=== PATIENT | male | born 1970 | race Caucasian/White ===

== ENCOUNTER 2018-11-06 12:30 | Emergency (ER) | payer MEDICAID, SELFPAY ==
[2018-11-06 12:30] VITALS: BP 148/91; PULSE 58; RESP 16; TEMP 36.3; O2SAT 99; BMI 25.8
--- NOTE | 2018-11-06 12:55 | ED.VISSUMM ---
- ER Visit Summary Date of Service: 11/06/18 Chief Complaint: Diarrhea History of Present Illness: The patient is a 48 M who presents with diarrhea. This has been going on for about 7 weeks. He has multiple episodes of liquid stool per day. He is worried he might be dehydrated. He noticed a small amount of blood in his diarrhea today. He was on antibiotics around for an upper respiratory infection. He said he already had diarrhea at that time. No pain or other symptoms. No fevers. Physical Examination: Afebrile and vital signs unremarkable. Abdomen soft. Skin appears normal. Test Results: We will check labs, urine, stool testing Emergency Department Course and Treatment: Patient treated with fluids while awaiting results. Hemoglobin 12.8, otherwise labs and urinalysis unremarkable. Patient presents with 7 weeks of diarrhea. He does have findings concerning for C. difficile. We will treat with Flagyl. We will also cover with Cipro. He was referred to primary care for follow-up. Treatment Plan: As above Disposition: Discharge Impression: 1. Diarrheal illness This note was generated with [employer] dictation software. It may contain incorrect words, spelling, and punctuation that were not noted in review of the chart prior to signing ED Disposition - Plan for ED Patient: Chief Complaint: Diarrhea Referrals: Osmel Presley DO [Primary Care Provider] -
[2018-11-06] MEDS: 0.9% Normal Saline 1,000 ML 1000 ML IV (13:42)
[2018-11-06 13:51] LABS: Absolute Lymphocyte Count 2.04 X10^3/ul (0.83-4.51); Basophil# 0.05 X10^3/uL; Basophil% 0.7 % (0-1); Eosinophil# 0.13 X10^3/uL; Eosinophils% 1.9 % (0-5); Hematocrit 39.8 % (40-54); Hemoglobin 12.8 g/dl (13.0-16.5); Lymphocyte # 2.04 X10^3/ul (4.0); Lymphocyte % 30.5 % (19-41); Mean Corp Hgb Conc 32.2 g/gl (32-36); Mean Corpuscular Hgb 29.6 pg (27.0-32.0); Mean Corpuscular Volume 91.9 fL (80-94); Mean Platelet Vol. 10.6 fl (6.2-12.0); Monocyte# 0.42 X10^3/uL; Monocyte% 6.3 % (0-10); Neutrophil # 4.03 X10^3/uL (2.7-7.7); Neutrophil % 60.5 % (47-70); Platelet Count 251 K/mm3 (150-450); RBC Distribution Width CV 13.5 % (11.6-14.6); RBC Distribution Width SD 45.3 fl (35.1-43.9); Red Blood Count 4.33 M/mm3 (4.6-6.2); White Blood Count 6.7 K/mm3 (4.4-11.0)
[2018-11-06 13:54] LABS: POSITIVE COUNT NO; POSITIVE DIFFERENTIAL NO; POSITIVE MORPHOLOGY NO
[2018-11-06 14:01] LABS: ALB/GLOB Ratio 1.2 RATIO (0.9-2.4); AST(SGOT) 15 U/L (15-37); Alanine Aminotransfer ALT/SGPT 22 U/L (16-61); Albumin, Serum 3.8 g/dL (3.2-5.0); Alkaline Phosphatase 66 U/L (45-117); Anion Gap 7 (5-15); BUN 15 mg/dL (7-18); BUN/Creat Ratio 16.5 RATIO (10-20); Calcium,Total 8.7 mg/dL (8.5-10.1); Chloride 109 mmol/L (98-107); Creatinine, Serum 0.91 mg/dL (0.70-1.30); EST Glomerular Filtration Rate 94 mL/min (>60); Est Glom Filt Rate - Afr Amer 113 mL/min (>60); Estimated Creatinine Clearance 97.12 ml/min; Globulin 3.2 g/dL (2.2-4.2); Glucose 89 mg/dL (74-106); Lipase 133 U/L (73-393); Sodium Level 142 mmol/L (136-145)
[2018-11-06 14:14] LABS: Bacteria 0 SEEN /hpf (None Seen); Mucous, Urine 0 SEEN /hpf (<or=2+); Red Blood Cells-Urine 0 SEEN /hpf (0-5); Squamous Epithelial Cells - UA 0 SEEN /hpf (0-5); White Blood Cells 0 SEEN /hpf (0-5)
[2018-11-06 14:19] LABS: Color, Urine Yellow (Yellow); Glucose, Dipstick Normal (Normal); Ketone-Dipstick Negative (Negative); Leukocyte Esterase-Dipstick Negative /ul (Negative); Nitrite-Dipstick Negative (Negative); Occult Blood-Urine Negative /ul (Negative); Protein-Dipstick Negative (Negative); Specific Gravity, Urine 1.015 (1.002-1.030); Urine Bilirubin Dipstick Negative (Negative); Urine Clarity Clear (Clear); Urine Urobilinogen Normal (Normal)
--- NOTE | 2018-11-06 15:07 | ED.DEP ---
ED Disposition - Plan for ED Patient: Chief Complaint: Diarrhea Instructions: ED Diarrhea Bacterial Prescriptions: Metronidazole [Flagyl] 500 mg PO Q8H 10 Days #30 tab Ciprofloxacin [Cipro] 500 mg PO BID 7 Days #14 tab Referrals: Osmel Presley DO [Primary Care Provider] -
[2018-11-06 15:10] VITALS: BP 134/69; PULSE 76; RESP 15; O2SAT 97
--- OUTSIDE RECORDS SUMMARY | 2019-02-10 05:51 | XMS RPT_ITS ---
:1970 Author Organization [facility] Care Team Providers Name Role Phone ANGIE SCHAFER Attending Unavailable SANTO PRESLEY Primary Care Unavailable ANGIE SCHAFER Attending Unavailable SANTO PRESLEY Primary Care Unavailable DR. CASIMIRO DUQUE DO Attending Unavailable SANTO PRESLEY Primary Care Unavailable SANTO PRESLEY Attending Unavailable SANTO PRESLEY Primary Care Unavailable Santo Presley Primary Care Unavailable Phoenix Marshall Attending Unavailable PROBLEMS PROBLEMS DATE TYPE CONDITION / CODE ATTENDING STATUS SOURCE 10/30/2018 Admitting NETO Chaudhary DO, DR. Active [facility] Diagnosis unspecified / CASIMIRO Velasquez R19.7(ICD-10) Repository PROCEDURES PROCEDURES No Procedure Records FoundRESULTS RESULTS Observed: 11/27/2018 Status: F Source: [facility] 9:26 AM [facility] REPOSITORY . MICRO - Microbiology PROCEDURE: Clostridium difficile PCR [^1 *1] SOURCE: Stool BODY SITE: COLLECTED DATE/TIME: 11/27/2018 09:26 EST RECEIVED DATE/TIME: 11/27/2018 15:30 EST START DATE/TIME: 11/27/2018 15:30 EST FREE TEXT SOURCE: FINAL REPORTS Final Report [] Verified Date/Time/Personnel: 11/27/2018 22:31 EST NEGATIVE. No tcdB gene DNA detected. Negative test results may occur from improper collection, handling or storage of specimen, technical error, or number of organisms below the analytical sensitivity of the test. Interpretive Data ^1: Clostridium difficile PCR As with all in vitro diagnostic tests, positive and negative predictive values are highly dependent on prevalence. [employer] C. difficile PCR Assay performance may vary depending on the prevalence and population tested. Performing Locations *1: This test was performed at: [address] Performed By: #### CDP #### [place] [address] Observed: 11/27/2018 Status: F Source: [facility] 9:26 AM [facility] REPOSITORY . MICRO - Microbiology PROCEDURE: Stool Culture [^1 *1] SOURCE: Stool BODY SITE: COLLECTED DATE/TIME: 11/27/2018 09:26 EST RECEIVED DATE/TIME: 11/27/2018 15:30 EST START DATE/TIME: 11/27/2018 15:30 EST FREE TEXT SOURCE: FINAL REPORTS Final Report [] Verified Date/Time/Personnel: 11/30/2018 12:10 EST Normal stool bernardino present. Salmonella: Negative Shigella: Negative Campylobacter: Negative PRELIMINARY REPORTS Preliminary Report [] Verified Date/Time/Personnel: 11/29/2018 12:23 EST Normal stool bernardino present. Negative for stool pathogens at 48 hours. Final report to follow. Interpretive Data ^1: Culture Stool Requests for alternative pathogens including Yersinia, E. coli 0157, C. difficile toxin, Rotavirus, Giardia and parasites require specific requests. Performing Locations *1: This test was performed at: [facility], [address] [place] [address], [address] Performed By: #### STOCK PLAN ADMINISTRATOR, JUSTINA #### [address] [address] Observed: 11/27/2018 Status: F Source: [facility] 9:[facility] AM [facility] REPOSIT[facility] . MICRO - Microbiology PROCEDURE: Shiga Toxins 1 and 2 [^1ACCESSION: [id number] *1] SOURCE: Stool BODY SITE: COLLECTED DATE/TIME: 11/27/2018 09:26 EST RECEIVED DATE/TIME: 11/27/2018 15:30 EST START DATE/TIME: 11/27/2018 15:30 EST FREE TEXT SOURCE: FINAL REPORTS Final Report [] Verified Date/Time/Personnel: 11/30/2018 12:27 EST Absence of Shiga toxin 1 Absence of Shiga toxin 2 Interpretive Data ^1: Shiga Toxins 1 and 2 Testing performed by immunochromatography. PROCEDURE: Stool Culture [^2 *1] SOURCE: Stool BODY SITE: COLLECTED DATE/TIME: 11/27/2018 09:26 EST RECEIVED DATE/TIME: 11/27/2018 15:30 EST START DATE/TIME: 11/27/2018 15:30 EST FREE TEXT SOURCE: FINAL REPORTS Final Report [] Verified Date/Time/Personnel: 11/30/2018 12:10 EST Normal stool bernardino present. Salmonella: Negative Shigella: Negative Campylobacter: Negative PRELIMINARY REPORTS Preliminary Report [] Verified Date/Time/Personnel: 11/29/2018 12:23 EST Normal stool bernardino present. Negative for stool pathogens at 48 hours. Final report to follow. Interpretive Data ^2: Culture Stool Requests for alternative pathogens including Yersinia, E. coli 0157, C. difficile toxin, Rotavirus, Giardia and parasites require specific requests. Performing Locations *1: This test was performed at: [facility], [address] [place] [address], [address] , [place] Performed By: #### JUSTINA BARBA #### [address] [address] DISCHARGE INSTRUCTION Observed: 11/06/2018 Status: F Source: [place] 4:14 PM [facility] Medical Records Department [address] [place] [address] Discharge Instruction 11/06/18 1507 MR#: [id number] Acct: [id number] Name: LISHA OCAMPO Rep #: [id number] : 1970 48 From: Phoenix Marshall MD PCP: Santo Presley DO Status: DEP ER ED Disposition - Plan for ED Patient: Chief Complaint: Diarrhea Instructions: ED Diarrhea Bacterial Prescriptions: Metronidazole [Flagyl] 500 mg PO Q8H 10 Days #30 tab Ciprofloxacin [Cipro] 500 mg PO BID 7 Days #14 tab Referrals: Santo Presley DO [Primary Care Provider] - What to do if you have Problems For any increased pain, shortness of breath, bleeding, nausea or vomiting, chest pain, or any unexpected problems, contact your Primary Care Provider. Call [facility] ([phone]) or report to the closest Emergency Room. Call 911 if necessary. 11/06/18 1614 <Electronically signed by Phoenix Marshall MD> Date Pohenix Marshall MD Cosigner Signature (If Indicated): Date CC: Santo Presley DO EMERGENCY DEPARTMENT Observed: 11/06/2018 Status: F Source: [place] SUMMARY 4:14 PM [facility] Medical Records Department [address] [place] [address] Emergency Department Summary 11/06/18 1255 MR#: [id number] Acct: [id number] Name: LISHA OCAMPO Rep #: [id number] : 1970 48 From: Phoenix Marshall MD PCP: Santo Presley DO Status: DEP ER - ER Visit Summary Date of Service: 11/06/18 Chief Complaint: Diarrhea History of Present Illness: The patient is a 48 M who presents with diarrhea. This has been going on for about 7 weeks. He has multiple episodes of liquid stool per day. He is worried he might be dehydrated. He noticed a small amount of blood in his diarrhea today. He was on antibiotics around for an upper respiratory infection. He said he already had diarrhea at that time. No pain or other symptoms. No fevers. Physical Examination: Afebrile and vital signs unremarkable. Abdomen soft. Skin appears normal. Test Results: We will check labs, urine, stool testing Emergency Department Course and Treatment: Patient treated with fluids while awaiting results. Hemoglobin 12.8, otherwise labs and urinalysis unremarkable. Patient presents with 7 weeks of diarrhea. He does have findings concerning for C. difficile. We will treat with Flagyl. We will also cover with Cipro. He was referred to primary care for follow-up. Treatment Plan: As above Disposition: Discharge Impression: 1. Diarrheal illness This note was generated with [employer] dictation software. It may contain incorrect words, spelling, and punctuation that were not noted in review of the chart prior to signing ED Disposition - Plan for ED Patient: Chief Complaint: Diarrhea Referrals: Santo Presley DO [Primary Care Provider] - What to do if you have Problems For any increased pain, shortness of breath, bleeding, nausea or vomiting, chest pain, or any unexpected problems, contact your Primary Care Provider. Call [facility] ([phone]) or report to the closest Emergency Room. Call 911 if necessary. 11/06/18 1614 <Electronically signed by Phoenix Marshall MD> Date Phoenix Marshall MD Cosigner Signature (If Indicated): Date CC: Santo Presley DO URINALYSIS, COMPLETE Collected: 11/06/2018 Status: F Source: [place] 2:10 PM [facility] [place] Order Comment: Order Date: 11/06/18 How was Urine Obtained? CLEAN CATCH TYPE CODE TESTS RESULT OUT OF RANGE REFERENCE UNITS LAB L400.3000 Yellow COLOR Normal Yellow LAB L400.3050 Clear Normal CLARITY Clear LAB L400.3200 Normal mg/dl Normal GLUCOSE, UR Normal LAB L400.3300 Negative mg/dL Normal BILIRUBIN URINE Negative LAB L400.3400 Negative mg/dl Normal KETONE UR Negative LAB L400.3465 1.002-1.030 Normal SP.GR. DIPSTX 1.015 LAB L400.3550 5.0 - 8.0 pH UR Normal 6.0 LAB L400.3600 Negative mg/dl PROT Normal DIPSTX Negative LAB L400.3700 Normal mg/dl Normal UROBILI Normal LAB L400.3750 Negative Normal NITRITE UR Negative LAB L400.3780 Negative /ul Normal OCCULT BLOOD-UR Negative LAB L400.3800 Negative /ul LEUK Normal ESTERASE Negative LAB L400.4050 0-5 /hpf WBC 0 Normal SEEN LAB L400.4100 0-5 /hpf 0 Normal RBC-UA SEEN LAB L400.4150 0-5 /hpf SQUAM 0 Normal EPI SEEN LAB L400.4300 None Seen /hpf 0 Normal BACTERIA SEEN LAB L400.4350 <or=2+ /hpf 0 Normal MUCUS, URINE SEEN Performed By: #### L400.0001 #### [facility] [address] [place], [address] CBC W/DIFF, AUTOMATED Collected: 11/06/2018 Status: F Source: [place] 1:26 PM [facility] [place] TYPE CODE TESTS RESULT OUT OF RANGE REFERENCE UNITS LAB L100.1000 4.4-11.0 K/mm3 Normal WBC 6.7 LAB L100.1200 4.6-6.2 M/mm3 Low RBC 4.33 LAB L100.1300 13.0-16.5 g/dl Low HGB 12.8 LAB L100.1400 40-54 % Low HCT 39.8 LAB L100.1500 80-94 fL Normal MCV 91.9 LAB L100.1600 27.0-32.0 pg Normal MCH 29.6 LAB L100.1700 32-36 g/gl Normal MCHC 32.2 LAB L100.1810 11.6-14.6 % Normal RDW CV 13.5 LAB L100.1820 35.1-43.9 fl High RDW SD 45.3 LAB L100.1900 150-450 K/mm3 Normal PLT 251 LAB L100.2000 6.2-12.0 fl Normal MPV 10.6 LAB L100.2100 47-70 % Normal NEUT% 60.5 LAB L100.2200 19-41 % Normal LY% 30.5 LAB L100.2300 0-10 % Normal MONO% 6.3 LAB L100.2400 0-5 % Normal EO% 1.9 LAB L100.2500 0-1 % Normal BASO% 0.7 LAB L100.2550 0.0-0.9 % Normal IM GRAN % 0.100 Result Comment: IG% - Immature Granulocytes (promyelocytes, myelocytes and metamyelocytes) > 1% indicates that a LEFT SHIFT is Present. LAB L100.2620 2.0-7.7 X10 3/uL Normal Absolute Neut 4.0 LAB L100.2720 0.83-4.51 X10 3/ul Normal Absolute Lymph 2.04 Performed By: #### L100.0100 #### [facility] [address] [place], [address] COMPREHENSIVE METABOLIC Collected: 11/06/2018 Status: F Source: [facility] 1:26 PM [facility] [place] TYPE CODE TESTS RESULT OUT OF RANGE REFERENCE UNITS LAB L501.0100 74-106 mg/dL Normal GLU 89 Result Comment: Please note revised GLUCOSE reference range effective 2017. LAB L501.1000 7-18 mg/dL Normal BUN 15 LAB L501.1100 0.70-1.30 mg/dL Normal CREAT,SERUM 0.91 Result Comment: The validity of the calculated GFR AND GFRAA in patients over 70 years has not been determined. Clinical correlation is essential. LAB L501.1110 >60 mL/min Normal EST GFR 94 Result Comment: Non- GFR Calc LAB L501.1115 >60 mL/min Normal EST GFR - AA 113 Result Comment: GFR Calc LAB L501.1255 ml/min Normal Estimated CRCL 97.12 LAB L501.1300 10-20 RATIO Normal BUN/CRE 16.5 LAB L501.1500 6.4-8. g/dL Normal 2 T PROT 7.0 LAB L501.1800 3.2-5. g/dL Normal 0 ALB 3.8 LAB L501.1950 2.2-4. g/dL Normal 2 GLOB 3.2 LAB L501.2000 0.9-2. RATIO Normal 4 A/G 1.2 LAB L501.2200 8.5-10 mg/dL Normal .1 CA 8.7 LAB L501.4100 15-37 U/L Normal AST 15 LAB L501.4305 45-117 U/L Normal ALK P 66 LAB L501.4405 16-61 U/L Normal ALT 22 LAB L501.4600 0.20-1 mg/dL Normal .00 T BILI 0.30 LAB L501.5300 136-14 mmol/L Normal 5 NA 142 LAB L501.5600 3.5-5. mmol/L Normal 1 K 4.0 LAB L501.5900 98-107 mmol/L High CL 109 LAB L501.6100 21.0-3 mmol/L Normal 2.0 CO2 26.0 LAB L501.6200 5-15 Normal GAP 7 Performed By: #### L500.4050, L501.2450 #### [facility] [address] [place], [address] LIPASE Collected: 11/06/2018 Status: F Source: [place] 1:26 PM [facility] [place] TYPE CODE TESTS RESULT OUT OF RANGE REFERENCE UNITS LAB L501.2450 73-393 U/L Normal LIPASE 133 Performed By: #### L500.4050, L501.2450 #### [facility] [address] [place], [address] Observed: 10/30/2018 Status: F Source: [facility] 9:12 AM [facility] REPOSITORY . MICRO - Microbiology PROCEDURE: Clostridium difficile PCR [^1 *1] SOURCE: Stool BODY SITE: COLLECTED DATE/TIME: 10/30/2018 09:12 EST RECEIVED DATE/TIME: 10/30/2018 16:21 EST START DATE/TIME: 10/30/2018 16:21 EST FREE TEXT SOURCE: FINAL REPORTS Final Report [] Verified Date/Time/Personnel: 10/30/2018 23:40 EST NEGATIVE. No tcdB gene DNA detected. Negative test results may occur from improper collection, handling or storage of specimen, technical error, or number of organisms below the analytical sensitivity of the test. Interpretive Data ^1: Clostridium difficile PCR As with all in vitro diagnostic tests, positive and negative predictive values are highly dependent on prevalence. [employer] C. difficile PCR Assay performance may vary depending on the prevalence and population tested. Performing Locations *1: This test was performed at: [facility], [address] [place] [address], [address] [place] [address] Performed By: #### CDPCR #### [place] [address] ALLERGIES ALLERGIES DATE TYPE / CODE NAME / CODE REACTION SEVERITY SOURCE 11/06/2018 Drug quetiapine Other Unknown [place] Allergy/416 fumarate/[id number] [facility] [id number]([place] [address](RXNORM) [facility] ED CT) Repository 11/06/2018 Drug sumatriptan/F0060 Other Unknown [place] Allergy/416 [address](RXNORM) [facility] 034405([facility] ED CT) Repository 11/06/2018 Drug duloxetine/U74221 Other Unknown [place] Allergy/416 8705(RXNORM) [facility] 118459([facility] ED CT) Repository ENCOUNTERS ENCOUNTERS ADMIT/DISCHARGE ACCOUNT NUMBER ADMITTING ENCOUNTER LOCATION SOURCE CLASS 11/27/2018/12/01/19 [id number] Ambulatory BBuilding:DR [place] 19 [facility] Repository 11/06/2018/11/06/20 [id number] Emergency [place] 18 [facility] ding:ED Repository 10/30/2018/11/03/20 [id number] Ambulatory BBuilding:DR [place] 18 [facility] Repository 10/07/2018 [id number] Ambulatory [facility] Repository 10/07/2018 [id number] Ambulatory BBuilding:[facility] Repository PAYERS PAYERS ENCOUNTER GUARANTOR PAYER SUBSCRIBER SOURCE 11/27/2018 LISHA Nowak Primary LISHA [facility] ARMSDOB: Insurance[facility] E HEALTHCARE [id number] Repository WILLIAM INSCOPolicy Number: [address] [facility] [place] [id number], [place] [address]Hqa: [phone]) Date:2018-11-27Tel: [id number] [phone] (HP)Tel: [phone] Name:XPO BOX (HP) (WP) [address] [place] [address] 000-0000 () [phone]: 11/06/2018 LISHA Nowak Primary Insurance:[facility] LISHA Nowak [place] [id number] [facility] ARMSDOB: [facility] Number: [id number] [place], [place] [id number] Repository [address]Dud: [phone]) Date:[phone] () [address] [place] [address]UM: 11/06/2018 Secondary NOT GIVENUNK [place] Insurance:SELF PAY [facility] Number: Effective Repository Date:2018-11-06 10/30/2018 LISHA Nowak Primary LISHA Nowak [facility] ARMSDOB: [facility] E HEALTHCARE [id number] Repository [place] [facility] Number: [address] [place] [id number], [place] [address]Tft: [phone]) Date:2018-10-30Tel: [phone] (HP)Tel: [phone]) Name:XPO BOX (HP) (WP) [address] [place] [address] 000-0000 () [phone]: 10/07/2018 LISHA Nowak Primary [facility]HA [facility] E MEDICAIDPolicy [id number] Repository [place] Number: Effective [place] Date:2018-10-07 [address]Uje: [phone] Name:[phone] () (WP) 10/07/2018 LISHA Nowak Primary LISHA Nowak [facility]: [facility]: [facility] E MEDICAIDPolicy [id number] Repository [place] Number: Effective [place], [place] Date:2016-10-24 [address]Osp: [phone] Name:[phone] () (WP)
== END 2018-11-06 15:18 | disposition home or self-care (01) ==
LOC: ED 14:25
PROVIDERS: Emergency Provider Emergency Medicine; Family Provider Preventive Medicine Occupational Medicine; PCP Preventive Medicine Occupational Medicine
DX: R19.7 Diarrhea, unspecified (principal); Z72.0 Tobacco use
CPT/HCPCS: 80053; 81001; 83690; 85025; 99283; J7030; A4216

== ENCOUNTER 2020-04-06 07:59 | Emergency (ER) | payer MEDICAID, SELFPAY ==
[2020-04-06 08:01] VITALS: BP 154/106; PULSE 68; RESP 18; TEMP 35.7; O2SAT 99; BMI 28.1
--- NOTE | 2020-04-06 08:12 | CT_ITS ---
STUDY: CT BRAIN WITHOUT CONTRAST REASON FOR EXAM: Male, 50 years old. 9 FT FALL X1 DAY AGO -- PAIN ALL OVER RADIATION DOSAGE (If Supplied By Facility): CTDIvol = ( 44.99 ) mGy, DLP = ( 796.11 ) mGycm TECHNIQUE: Transaxial CT imaging of the brain was performed without administration of intravenous contrast material. Individualized dose optimization techniques were used for this CT. COMPARISON: No relevant priors. FINDINGS: Normal soft tissue structures. Normal calvarium. Normal size ventricles and extra-axial spaces for the patient''s age. Normal white matter tracts of the cerebral hemispheres. Normal basal ganglia and thalami. Normal brainstem. Normal cerebellum. There is no intracranial hemorrhage. There are no findings of an acute ischemic infarction. Normal visualized paranasal sinuses. CT/Brain/Head without Contrast IMPRESSION: Normal unenhanced CT scan of the brain. Electronically Signed: Blaze Galicia, at 8:48 EDT , Service support ,
--- NOTE | 2020-04-06 08:12 | CT_ITS ---
STUDY: CT LUMBAR SPINE WITHOUT CONTRAST REASON FOR EXAM: Male, 50 years old. 9 FT FALL X1 DAY AGO -- PAIN ALL OVER RADIATION DOSAGE (If Supplied By Facility): CTDIvol = ( 24.33 ) mGy, DLP = ( 725.09 ) mGycm TECHNIQUE: The patient was scanned in a multi detector CT scanner. High resolution transaxial imaging was performed. Images were obtained from T12 to S1 vertebral level. Sagittal and coronal images were reconstructed. Individualized dose optimization techniques were used for this CT. COMPARISON: None FINDINGS: Normal lumbar lordosis. There is no substantial scoliosis. Normal vertebrae of the lumbar spine. L1-2: Normal endplates. Mild degree of diffuse posterior disc bulge. No significant stenosis. Normal bilateral facet joints. Normal central canal and bilateral lateral recesses. Normal bilateral intervertebral neural foramina. L2-3: Moderate degree of disc space narrowing and mild degree of disc degeneration. Mild degree of diffuse posterior disc bulge. No significant stenosis is seen. Mild degree of anterior spondylosis. L3-4: Minimal degree of anterior spondylosis. Mild degree of diffuse posterior disc bulge. Facet joint hypertrophy. Mild degree of bilateral neural foraminal stenosis. L4-5: Moderate degree of disc space narrowing and disc degeneration. Spondylosis. Facet joint osteoarthritis. Mild degree of bilateral neural foraminal stenosis. L5-S1: Partial sacralization of the right lateral body of the L5 vertebrae. No other abnormality is seen. Atherosclerotic calcification of the aorta. CT/Spine Lumbar without Contrast IMPRESSION: Multilevel degenerative changes, as described above. Electronically Signed: Blaze Galicia, at 8:51 EDT , Service support ,
--- NOTE | 2020-04-06 08:12 | CT_ITS ---
STUDY: CT CERVICAL SPINE WITHOUT CONTRAST REASON FOR EXAM: Male, 50 years old. 9 FT FALL X1 DAY AGO -- PAIN ALL OVER RADIATION DOSAGE (If Supplied By Facility): CTDIvol = ( 21.69 ) mGy, DLP = ( 725.09 ) mGycm TECHNIQUE: High resolution transaxial imaging was performed without contrast material. Sagittal and coronal images were reconstructed. Individualized dose optimization techniques were used for this CT. COMPARISON: None FINDINGS: Normal craniovertebral junction. Normal anterior atlantoaxial articulation. Normal odontoid process. There is straightening of the normal cervical lordosis. Normal vertebral bodies and posterior osseous elements. C2-3: Facet joint hypertrophy on the left side. The disc spaces well-maintained. No significant stenosis is seen. C3-4: Normal endplates. Normal disc height and morphology. Normal central canal and intervertebral neuroforamina. C4-5: Normal endplates. Normal disc height and morphology. Normal central canal and intervertebral neuroforamina. C5-6: Marked degree of disc space narrowing with spondylosis as well as uncovertebral arthrosis. Mild to moderate degree of right neural foraminal stenosis. Mild left neural foraminal stenosis. C6-7: Normal endplates. Normal disc height and morphology. Normal central canal and intervertebral neuroforamina. C7-T1: Normal endplates. Normal disc height and morphology. Normal central canal and intervertebral neuroforamina. Normal visualized soft tissue structures. CT/Spine Cervical without Contras IMPRESSION: Multilevel degenerative changes, as described above. Electronically Signed: Blaze Galicia, at 8:53 EDT , Service support ,
--- NOTE | 2020-04-06 08:12 | CT_ITS ---
STUDY: CT THORACIC SPINE WITHOUT CONTRAST REASON FOR EXAM: Male, 50 years old. 9 FT FALL X1 DAY AGO -- PAIN ALL OVER RADIATION DOSAGE (If Supplied By Facility): CTDIvol = ( 23.32 ) mGy, DLP = ( 846.56 ) mGycm TECHNIQUE: The patient was scanned in a multi detector CT scanner. High resolution imaging was performed. Images were obtained from T1 to L1 vertebral level. Sagittal and coronal images were reconstructed. Individualized dose optimization techniques were used for this CT. COMPARISON: None. FINDINGS: Normal visualized cervical spine. Normal kyphosis of the thoracic spine. There is no substantial scoliosis. Normal thoracic vertebrae and endplates. Normal disc spaces heights. The soft tissue structures are unremarkable. CT/Spine Thoracic without Contras IMPRESSION: Normal unenhanced CT examination of the thoracic spine. Electronically Signed: Blaze Galicia, at 8:52 EDT , Service support ,
--- NOTE | 2020-04-06 08:14 | ED.DCSUM_ITS ---
- ER Visit Summary Date of Service: 04/06/20 Chief Complaint: Fall History of Present Illness: The patient is a 50 M who presents after a fall. He states that he fell 9 feet through a roof yesterday. He states he tried to treat it at home but he was having a lot of pain throughout the night. He states he did hit his head and did blackout at some point. He fell onto his feet and lower back. He has having pain in the bilateral foot and ankle areas as well as the neck and back. Pain is worse with movement. He tried ibuprofen last night without any relief. Denies any visual changes. No loss of function of his arms or legs. Physical Examination: Vital signs are reviewed. HEENT exam is atraumatic. He has moist mucous membranes. His neck is supple. He does have diffuse cervical spine tenderness. Heart is regular rate and rhythm. Lungs are clear to auscultation bilaterally. Abdomen soft nontender. Back exam reveals diffuse tenderness from the cervical through the lumbar spine. Extremity exam reveals tenderness in the bilateral ankles and feet areas. He has tenderness of both fifth metatarsals as well as the bilateral ankles diffusely. He has left ankle swelling near the lateral malleolus. He is tender in the proximal left tibial area as well. His GCS is 15. He has equal strength and sensation bilaterally. He is able to ambulate on his own with a limp due to his foot and ankle pain. Test Results: CAT scan of the head is unremarkable. CAT scan of the cervical and lumbar spine reveals degenerative changes. Thoracic spine CT scan is normal. Bilateral ankle x-rays reveal left ankle swelling otherwise unremarkable. Bilateral foot x-rays reveal degenerative changes bilaterally. Tib-fib x-ray on the left is normal. Emergency Department Course and Treatment: The patient was given oxycodone for pain. Imaging studies revealed no broken bones or any other traumatic injuries. He likely has sprains of the bilateral ankles as well as strain of his back. At this time the patient's neurologic exam is normal. He is able to ambulate with a limp. I feel he can be discharged home. I will give him naproxen. He was educated on using ice and heat for his injuries. He will follow-up with his PCP. Treatment Plan: [] Disposition: Discharge Impression: Closed head injury Bilateral ankle sprain Back strain This note was generated with [employer] dictation software. It may contain incorrect words, spelling, and punctuation that were not noted in review of the chart prior to signing ED Disposition - Plan for ED Patient: Disposition: Home or Assisted Living Instructions: ED Mechanical Fall Prescriptions: Naproxen [Naprosyn] 500 mg PO BID PRN #20 tab Transmission Status: Pending to [facility] Referrals: Osmel Presley DO [Primary Care Provider] -
[2020-04-06] MEDS: oxyCODONE 5 MG Tablet PO (08:19)
--- NOTE | 2020-04-06 08:40 | RAD_ITS ---
STUDY: X-RAY - LEFT ANKLE REASON FOR EXAM: Male, 50 years old. FELL 9 FEET YESTERDAY, POSITIVE LOC. PAIN TO NECK, BACK, LEGS AND FEET. TECHNIQUE: 3 view(s) of the ankle. COMPARISON: None. FINDINGS: Normal visualized distal tibia and fibula. Normal medial and lateral malleoli. Normal tibiotalar articulation and ankle mortise. Normal visualized talus and calcaneus. The visualized subtalar, talonavicular, calcaneocuboid and tarsal articulations are normal. Soft tissue swelling. RAD/Ankle min 3 Views IMPRESSION: Soft tissue swelling. Electronically Signed: Blaze Galicia, at 8:54 EDT , Service support ,
--- NOTE | 2020-04-06 08:40 | RAD_ITS ---
STUDY: X-RAY - LEFT FOOT CLINICAL: Male, 50 years old. FELL 9 FEET YESTERDAY, POSITIVE LOC. PAIN TO NECK, BACK, LEGS AND FEET. TECHNIQUE: 3 view(s) of the foot. COMPARISON: None. FINDINGS: Normal talus, calcaneus, and tarsal bones. Normal visualized subtalar, talonavicular, calcaneocuboid, tarsal and tarsometatarsal articulations. Normal metatarsi. There is degenerative arthrosis of the metatarsophalangeal joint of the hallux . Normal tibial and fibular sesamoid bones. Normal interphalangeal joint of the great toe. Normal phalanges of the great toe. Normal second through fifth metatarsophalangeal joints. Normal interphalangeal joints and phalanges of the lesser toes. The soft tissue structures are unremarkable. RAD/Foot min 3 Views IMPRESSION: Degenerative changes at the first metatarsal phalangeal joint. Electronically Signed: Blaze Galicia, at 8:56 EDT , Service support ,
--- NOTE | 2020-04-06 08:40 | RAD_ITS ---
STUDY: X-RAY - RIGHT FOOT CLINICAL: Male, 50 years old. FELL 9 FEET YESTERDAY, POSITIVE LOC. PAIN TO NECK, BACK, LEGS AND FEET. TECHNIQUE: 3 view(s) of the foot. COMPARISON: None. FINDINGS: Normal talus, calcaneus, and tarsal bones. Normal visualized subtalar, talonavicular, calcaneocuboid, tarsal and tarsometatarsal articulations. Normal metatarsi. There is degenerative arthrosis of the metatarsophalangeal joint of the hallux with a hallux valgus deformity. Normal tibial and fibular sesamoid bones. Normal interphalangeal joint of the great toe. Normal phalanges of the great toe. Normal second through fifth metatarsophalangeal joints. Normal interphalangeal joints and phalanges of the lesser toes. The soft tissue structures are unremarkable. RAD/Foot min 3 Views IMPRESSION: Degenerative changes at the first metatarsophalangeal joint with hallux valgus deformity. Electronically Signed: Blaze Galicia, at 8:57 EDT , Service support ,
--- NOTE | 2020-04-06 08:40 | RAD_ITS ---
STUDY: X-RAY - LEFT TIBIA AND FIBULA REASON FOR EXAM: Male, 50 years old. FELL 9 FEET YESTERDAY, POSITIVE LOC. PAIN TO NECK, BACK, LEGS AND FEET. TECHNIQUE: AP and lateral view(s) of the tibia and fibula were obtained. COMPARISON: None. FINDINGS: Normal visualized tibia. Normal visualized fibula. The soft tissue structures are unremarkable. RAD/Tibia & Fibula 2 Views IMPRESSION: Normal x-ray examination of the tibia and fibula. Electronically Signed: Blaze Galicia, at 8:57 EDT , Service support ,
--- NOTE | 2020-04-06 08:40 | RAD_ITS ---
STUDY: X-RAY - RIGHT ANKLE REASON FOR EXAM: Male, 50 years old. FELL 9 FEET YESTERDAY, POSITIVE LOC. PAIN TO NECK, BACK, LEGS AND FEET. TECHNIQUE: 3 view(s) of the ankle. COMPARISON: None. FINDINGS: Normal visualized distal tibia and fibula. Normal medial and lateral malleoli. Normal tibiotalar articulation and ankle mortise. Normal visualized talus and calcaneus. The visualized subtalar, talonavicular, calcaneocuboid and tarsal articulations are normal. The soft tissue structures are unremarkable. RAD/Ankle min 3 Views IMPRESSION: Normal x-ray examination of the ankle. Electronically Signed: Blaze Galicia, at 8:55 EDT , Service support ,
== END 2020-04-06 09:24 | disposition home or self-care (01) ==
PROVIDERS: Emergency Provider Emergency Medicine; PCP Preventive Medicine Occupational Medicine
DX: S09.90XA Unspecified injury of head, initial encounter (principal); S39.012A Strain of muscle, fascia and tendon of lower back, initial encounter; S93.401A Sprain of unspecified ligament of right ankle, initial encounter; S93.402A Sprain of unspecified ligament of left ankle, initial encounter; W17.89XA Other fall from one level to another, initial encounter
CPT/HCPCS: 70450; 72125; 72128; 72131; 73590; 73610; 73630; 99283

== ENCOUNTER 2021-04-10 10:44 | Observation (INO) | payer MEDICAID, SELFPAY ==
[2021-04-10] VITALS (12 sets, daily range): BP systolic 128–166; BP diastolic 80–102; PULSE 48–67; RESP 16–18; TEMP 36.1–37.1; O2SAT 93–100; BMI 25.6; BMI 25.3
--- NOTE | 2021-04-10 10:45 | EKG12_ITS ---
Test Reason : CP Blood Pressure : / mmHG Vent. Rate : 057 BPM Atrial Rate : 057 BPM P-R Int : 186 ms QRS Dur : 082 ms QT Int : 406 ms P-R-T Axes : 068 035 048 degrees QTc Int : 395 ms Sinus bradycardia Otherwise normal ECG Confirmed by MORENITA TAVERA, ORQUIDEA ([id number]), newspaper photo editor TAIWO GALLEGO ([id number]) on 04/13/2021 11:24:38 A M Referred By: MARIAELENA Confirmed By:GUTIERREZ XAVIER MD
--- NOTE | 2021-04-10 10:54 | EKG12_ITS ---
Test Reason : CHEST PAIN Blood Pressure : / mmHG Vent. Rate : 049 BPM Atrial Rate : 049 BPM P-R Int : 192 ms QRS Dur : 080 ms QT Int : 440 ms P-R-T Axes : 070 043 060 degrees QTc Int : 397 ms Sinus bradycardia Otherwise normal ECG No previous ECGs available Confirmed by CHRISTINA TAVERA, KALPANA ([id number]), state editor TAIWO GALLEGO ([id number]) on 04/13/2021 11:10:08 AM Referred By: ZULY Confirmed By:KALPANA VASQUEZ MD
[2021-04-10] MEDS: Nitroglycerin SL (ED/IMG/CATH) 0.4 MG TABLET SL ×3 (11:06→11:28)
[2021-04-10] MEDS: Aspirin 81 MG TAB.CHEW 324 MG PO (11:06)
--- NOTE | 2021-04-10 11:10 | ED.VIS.CHEST ---
HPI History of Present Illness Chief Complaint: Chest Pain Informant: patient Narrative Narrative: Patient is a 51-year-old male with history of hypertension as well as tobacco abuse presenting with chest pain. Patient states he woke up around 7 AM and had severe chest pain in the center of his chest. He states it was severe for about 5 seconds. He states it felt like he was being hit by a car. The pain has persisted but his relented in intensity since then. He notes the pain greatest on his left hand. He has some associated shortness of breath. Patient states has been feeling dizzy lightheaded for the past few days but thought maybe was from one of his chronic migraines. He denies any swelling of his legs. He denies any weakness or paresthesias of his legs. He states he has been compliant with his home medications. Patient states he has a strong family history of heart disease with multiple family members in their 50s including his parents having heart attacks. He is not had a stress test ever. No other complaints or concerns at this time. Prior Similar Symptoms: No CVD Risk Factors: Positive for Hypertension, Family History 1' </=55 and Smoking [facility] Medical History Hypertension Knee cartilage, torn, left Home Medications alprazolam 2 mg PO Q6H PRN 04/10/21 [History Last Taken Unknown] bisoprolol fumarate 10 mg PO DAILY 04/10/21 [History Last Taken 04/10/21] Allergy/AdvReac Type Severity Reaction Status Date / Time duloxetine [From Cymbalta] Allergy Other Verified 04/06/20 07:59 quetiapine fumarate Allergy Other Verified 04/06/20 07:59 [From Seroquel] sumatriptan [From Imitrex] Allergy Other Verified 04/06/20 07:59 Social History Smoking Status: Current every day smoker ROS ROS ED Constitutional Constitutional ED: Denies fatigue or weakness Eyes Eyes: Denies blurry vision or other visual disturbances Cardiovascular Cardiovascular: Reports chest pain; Denies palpitations Respiratory/Chest Respiratory/Chest: Reports dyspnea; Denies cough, dyspnea on exertion or sputum Gastrointestinal Gastrointestinal: Denies abdominal pain, nausea or vomiting Genitourinary Genitourinary ED: Denies decreased urination or dysuria Musculoskeletal Musculoskeletal: Reports other Details: no leg swelling ; Denies arthralgias, extremity pain or myalgias Integumentary Denies new lesions or rash Neurologic Neurologic: Denies paresthesias or weakness Psychiatric Psychiatric: Denies anxiety or depression Hematologic/Lymphatic Hematologic/Lymphatic: Denies easy bleeding or easy bruising EXAM Physical Exam Const Vital Signs: 04/10/21 10:45 04/10/21 10:50 04/10/21 11:00 Temperature 97.0 F L Temperature Source Temporal Pulse Rate 61 Respiratory Rate 18 Respiratory Effort Normal Non-Labored Blood Pressure 166/94 H Blood Pressure Mean 118 Pulse Ox 99 99 Oxygen Delivery Method Room Air Room Air 04/10/21 11:06 04/10/21 11:17 04/10/21 11:28 Temperature Temperature Source Pulse Rate 54 L 67 53 L Respiratory Rate Respiratory Effort Blood Pressure 154/102 H 128/85 H 137/90 H Blood Pressure Mean Pulse Ox Oxygen Delivery Method 04/10/21 12:57 Temperature Temperature Source Pulse Rate 48 L Respiratory Rate 16 Respiratory Effort Blood Pressure 138/85 H Blood Pressure Mean 102 Pulse Ox 98 Oxygen Delivery Method Room Air Positive well nourished, well developed, alert and oriented x3 General Appearance ED: well developed HEENT Reports normocephalic and moist mucous membranes normocephalic Mouth ED: Yes moist mucous membranes normal Eyes PERRL and EOMs intact bilaterally General Eye ED: Yes normal appearance of both eyes Pupil: PERRL Neck supple and no JVD Lymph Lymphatic: no lymphadenopathy noted Chest Wall inspection of chest normal and palpation of chest normal Resp normal respiratory effort, normal air movement and clear to auscultation bilaterally Cardio regular rate and regular rhythm Peripheral Pulses: pulses 2+ throughout GI non-tender and non-distended Back/Spine no CVA tenderness and normal to inspection Extremity normal to inspection and full ROM Extremity Narrative: 2+ bilateral DP and PT pulses Neuro oriented x3, moves all extremities and no focal motor deficits Sensorium / Orientation: awake Psych mental status grossly normal and thought process normal Skin no rashes or lesions noted and no petechiae Heart Score History: Moderately Suspicious ECG: Normal Age: >45 - <65 years Risk Factors: >/= 3 Risk Factors or History of CAD Troponin: </= Normal Limit Score: 4 MDM MDM MDM Narrative Medical decision making narrative: Patient evaluated for chest pain. He appears nontoxic in no acute distress. Vital signs are remarkable for mild bradycardia. Patient's work-up is largely negative. D-dimer is below 0.5 and I do not suspect PE/DVT as a cause of his chest pain. Patient's heart score is 4 and he is never had a cardiac evaluation. I do think he would benefit from further inpatient cardiac evaluation. Patient is agreeable to plan of care. He is given aspirin, nitroglycerin, Tylenol and his home dose of Xanax in the ER. Patient did have some mild improvement of his chest pain with nitroglycerin after initially worsen his pain. Patient is hemodynamically stable in the ER. He is agreeable to this plan of care. Lab Data Attestation: I reviewed the patient's lab results. Labs: Laboratory Results - last 24 hr 04/10/21 04/10/21 04/10/21 10:50 10:50 10:50 WBC 6.6 RBC 4.87 Hgb 14.1 Hct 44.2 MCV 90.8 MCH 29.0 MCHC 31.9 L RDW Std Deviation 44.7 H RDW Coeff of Smith 13.4 Plt Count 258 MPV 11.4 Immature Gran % (Auto) 0.200 Neut % (Auto) 57.6 Lymph % (Auto) 33.3 [place] % (Auto) 5.0 Eos % (Auto) 2.4 Baso % (Auto) 1.5 H Absolute Neuts (auto) 3.8 Absolute Lymphs (auto) 2.19 Nucleated RBC % 0 D-Dimer Quant (PE/DVT) 0.31 Sodium 141 Potassium 3.7 Chloride 110 H Carbon Dioxide 25.0 Anion Gap 6 BUN 14 Creatinine 1.19 Estim Creat Clear Calc 69.45 Est GFR (MDRD) Af Amer 82 Est GFR (MDRD) Non-Af 68 BUN/Creatinine Ratio 11.8 Glucose 130 H Calcium 9.2 Troponin I < 0.015 Radiography Chest X-Ray - ED: 1 View, Read by ED Physician, Read by Radiologist and Normal Diagnostic Testing: Radiology Impression Chest X-Ray 04/10/21 11:20 IMPRESSION: Normal x-ray examination of the chest. Electronically Signed: Bunny King MD at 11:35 EDT , Service support , Rhythm Strip Rhythm Strip: Sinus bradycardia Rate: 57 Ectopy: None EKG Initial EKG: Attestation: I personally reviewed and interpreted this EKG as follows: Interpretation: Sinus Bradycardia Comments: Sinus bradycardia at a rate of 57 Normal axis Normal intervals Normal ST segments Discharge Plan Triage Chief Complaint: Chest Pain ED Provider: Xiao Paredes Dx/Rx/DC Orders Clinical Impression: Chest pain, HTN (hypertension) Prescriptions: No Action alprazolam 2 mg tablet 2 mg PO Q6H PRN (Reason: Anxiety) RF: 0 bisoprolol fumarate 10 mg tablet 10 mg PO DAILY RF: 0 Primary Care Provider: Osmel Presley Referrals: Osmel Presley DO [Primary Care Provider] - Disposition Disposition: Acute Care Hospital [facility]
[2021-04-10 11:14] LABS: Absolute Lymphocyte Count 2.19 X10^3/uL (0.83-4.51); Absolute Neutrophil Count 3.8 X10^3/uL (2.0-7.7); Basophil% 1.5 % (0-1); Eosinophil# 0.16 X10^3/uL; Eosinophils% 2.4 % (0-5); Hematocrit 44.2 % (40-54); Hemoglobin 14.1 g/dL (13.0-16.5); Lymphocyte # 2.19 X10^3/ul (0.83-4.51); Lymphocyte % 33.3 % (19-41); Mean Corp Hgb Conc 31.9 g/dL (32-36); Mean Corpuscular Volume 90.8 fL (80-94); Mean Platelet Vol. 11.4 fl (6.2-12.0); Monocyte# 0.33 X10^3/uL; NRBC Flagged by Analyzer 0 % (0-5); Neutrophil # 3.79 X10^3/uL (2.7-7.7); Neutrophil % 57.6 % (47-70); Platelet Count 258 K/mm3 (150-450); RBC Distribution Width CV 13.4 % (11.6-14.6); RBC Distribution Width SD 44.7 fl (35.1-43.9); Red Blood Count 4.87 M/mm3 (4.6-6.2); White Blood Count 6.6 K/mm3 (4.4-11.0)
--- NOTE | 2021-04-10 11:20 | RAD_ITS ---
STUDY: X-RAY CHEST REASON FOR EXAM: Male, 51 years old. Chest pain TECHNIQUE: Single AP portable view of the chest. COMPARISON: None. FINDINGS: EKG leads overlie the chest The lungs are clear and expanded. There is no demonstrated pleural abnormality. Normal size heart. Normal mediastinum and dale. Normal visualized pulmonary arteries. Normal visualized aortic arch and descending thoracic aorta. Normal visualized thoracic spine. Normal visualized ribs, clavicles, and shoulders. There is no demonstrated abnormality of the visualized soft tissue structures of the upper abdomen. RAD/Chest 1 View (Portable) IMPRESSION: Normal x-ray examination of the chest. Electronically Signed: Bunny King MD at 11:35 EDT , Service support ,
[2021-04-10 11:23] LABS: Anion Gap 6 (5-15); BUN 14 mg/dL (7-18); BUN/Creat Ratio 11.8 RATIO (10-20); Calcium,Total 9.2 mg/dL (8.5-10.1); Chloride 110 mmol/L (98-107); Creatinine, Serum 1.19 mg/dL (0.70-1.30); EST Glomerular Filtration Rate 68 mL/min (>60); Est Glom Filt Rate - Afr Amer 82 mL/min (>60); Estimated Creatinine Clearance 69.45 ml/min; Glucose 130 mg/dL (74-106); Potassium 3.7 mmol/L (3.5-5.1); Sodium Level 141 mmol/L (136-145)
[2021-04-10 12:12] LABS: D-Dimer Quantitative (DVT/PE) 0.31 FEU/ug/m (0.27-0.49)
[2021-04-10] MEDS: Acetaminophen 325 MG Tablet 650 MG PO (12:54)
--- NOTE | 2021-04-10 13:26 | HP.PCM.HOS_ITS ---
HPI - General HPI Narrative LISHA OCAMPO, is a 51 M with a PMH as outlined who presents with a complaint of chest pain. He woke up with the chest pain this morning, and it was retrosternal and felt like he had been hit by a car, and radiated to his left arm. He also had associated shortness of breath, and some lightheadedness and dizziness. Review of systems was otherwise negative. He hasnt had such chest pain before, though he does admit to a strong family history of heart disease, and he has never had a stress test. VItals in the ED showed BP of 166/94, OH of 61, and he was saturating at 99% on room air. CBC and BMP wre unremarkable, and initial troponin was negative. EKG showed no acute ST changes. He is being admitted to be managed for chest pain to r/o ACS. [facility] Medical History Hypertension Knee cartilage, torn, left Home Medications alprazolam 2 mg PO Q6H PRN 04/10/21 [History Last Taken Unknown] bisoprolol fumarate 10 mg PO DAILY 04/10/21 [History Last Taken 04/10/21] topiramate 10 mg OTHER BID 04/10/21 [History Last Taken 04/10/21] Allergy/AdvReac Type Severity Reaction Status Date / Time duloxetine [From Cymbalta] Allergy Other Verified 04/06/20 07:59 quetiapine fumarate Allergy Other Verified 04/06/20 07:59 [From Seroquel] sumatriptan [From Imitrex] Allergy Other Verified 04/06/20 07:59 Social History Smoking Status: Current every day smoker ROS Constitutional Constitutional: Denies anorexia, change in weight, chills, fatigue, fever(s) or weakness ENT HEENT: Denies abnormal hearing, dysphagia, headache(s), hearing loss or sore throat Cardiovascular Cardiovascular: Reports chest pain and lightheadedness; Denies dyspnea on exertion, orthopnea, palpitations, paroxysmal nocturnal dyspnea, rapid heart rate or syncope Respiratory/Chest Respiratory/Chest: Denies cough, dyspnea, excessive phlegm production, productive cough, shortness of breath at rest, shortness of breath with exertion or wheezing Gastrointestinal Gastrointestinal: Denies abdominal pain, constipation, diarrhea, nausea or vomiting Genitourinary Genitourinary: Denies burning urination or dysuria Musculoskeletal Musculoskeletal: Denies arthralgias, back pain or joint swelling Neurologic Neurologic: Denies abnormal speech, confusion, dizziness, focal weakness or numbness Psychiatric Psychiatric: Denies anxiety Hematologic/Lymphatic Hematologic/Lymphatic: Denies anemia Vital Signs Vital Signs Vital Signs: 04/10/21 10:45 04/10/21 10:50 04/10/21 11:00 Temperature 97.0 F L Temperature Source Temporal Pulse Rate 61 Respiratory Rate 18 Respiratory Effort Normal Non-Labored Blood Pressure 166/94 H Blood Pressure Mean 118 Pulse Ox 99 99 Oxygen Delivery Method Room Air Room Air 04/10/21 11:06 04/10/21 11:17 04/10/21 11:28 Temperature Temperature Source Pulse Rate 54 L 67 53 L Respiratory Rate Respiratory Effort Blood Pressure 154/102 H 128/85 H 137/90 H Blood Pressure Mean Pulse Ox Oxygen Delivery Method 04/10/21 12:57 Temperature Temperature Source Pulse Rate 48 L Respiratory Rate 16 Respiratory Effort Blood Pressure 138/85 H Blood Pressure Mean 102 Pulse Ox 98 Oxygen Delivery Method Room Air Physical Exam Const alert, oriented x3 and no apparent distress General Appearance: cooperative HEENT normocephalic, head/scalp atraumatic and hearing grossly normal bilaterally Eyes PERRL, EOMs intact bilaterally and conjunctivae normal Neck no lymphadenopathy Resp normal respiratory effort, no retractions, no use of accessory muscles and clear to auscultation bilaterally Cardio regular rhythm, S1 normal heart sound, S2 normal heart sound and no murmurs Cardio Narrative: bradycardic GI normal to inspection, nondistended, normoactive bowel sounds, soft to palpation, non-tender and non-distended Extremity normal to inspection, full ROM and no clubbing, cyanosis or edema Peripheral Pulses: Yes pulses 2+ throughout Skin no rashes or lesions noted and no wounds Neuro oriented x3 Sensorium / Orientation: awake and alert Psych affect normal Lab / Micro Data Result Diagrams: 04/10/21 10:50 04/10/21 10:50 Labs: Laboratory Results - last 24 hr 04/10/21 04/10/21 04/10/21 10:50 10:50 10:50 WBC 6.6 RBC 4.87 Hgb 14.1 Hct 44.2 MCV 90.8 MCH 29.0 MCHC 31.9 L RDW Std Deviation 44.7 H RDW Coeff of Smith 13.4 Plt Count 258 MPV 11.4 Immature Gran % (Auto) 0.200 Neut % (Auto) 57.6 Lymph % (Auto) 33.3 [place] % (Auto) 5.0 Eos % (Auto) 2.4 Baso % (Auto) 1.5 H Absolute Neuts (auto) 3.8 Absolute Lymphs (auto) 2.19 Nucleated RBC % 0 D-Dimer Quant (PE/DVT) 0.31 Sodium 141 Potassium 3.7 Chloride 110 H Carbon Dioxide 25.0 Anion Gap 6 BUN 14 Creatinine 1.19 Estim Creat Clear Calc 69.45 Est GFR (MDRD) Af Amer 82 Est GFR (MDRD) Non-Af 68 BUN/Creatinine Ratio 11.8 Glucose 130 H Calcium 9.2 Troponin I < 0.015 Rhythm Strip Rhythm Strip: Sinus bradycardia Rate: 57 Ectopy: None Radiology Impression Chest X-Ray 04/10/21 11:20 IMPRESSION: Normal x-ray examination of the chest. Electronically Signed: Bunny King MD at 11:35 EDT , Service support , Assessment & Plan Assessment/Plan (1) Chest pain: PLAN: #CHest pain to r/o ACS * admit to PCu with telemetry * cycle troponins * SL nitroglycerin prn. PO aspirin 81mg daily * for stress test tomorrow if troponins are negative * #Sinus bradycardia * HR is down in the 50s. asymptomatic * patient is on bisoprolol, though he admits to not being very compliant with it * check 2D echo. For stress test tomorrow as above * hold bisoprolol * #Depression and anxiety * on xanax * #Hypertension: on bisoprolol. Patient bradycardic. Will hold bisoprolol for now and switch to amlodipine. * DVT prophylaxis: lovenox Code status: full code * Patient counseled for difference 24 code, DNR CCA and DNR CCA. Patient like to be full code. Total [id number]-ga-[id number] time 16 minutes. Visit Charges OBSV E&M: 96777 Initial observation care L2 Procedures Hospitalists Procedures: [id number] Advncd Care Plan 30 Min
[2021-04-10] MEDS: ALPRAZolam 0.5 MG Tablet 2 MG PO ×2 (13:28→20:34)
--- NOTE | 2021-04-10 14:35 | EKG12_ITS ---
Test Reason : AM EKG Blood Pressure : / mmHG Vent. Rate : 056 BPM Atrial Rate : 056 BPM P-R Int : 180 ms QRS Dur : 080 ms QT Int : 424 ms P-R-T Axes : 071 031 051 degrees QTc Int : 409 ms Sinus bradycardia Otherwise normal ECG Confirmed by MELANIE TAVERA, KATLIN ([id number]), acquisition editor TAIWO GALLEGO ([id number]) on 04/13/2021 11:07:30 AM Referred By: ZULY Confirmed By:KATLIN NAVARRO MD
[2021-04-10] MEDS: Nitroglycerin (INPATIENT USE) 0.4 MG TAB.SUBL SL (17:15)
[2021-04-10] MEDS: Acetaminophen/Butalbital/Caffe 1 Tablet PO (17:19)
[2021-04-10] MEDS: 0.9% Saline Lock 10 ML Syringe IV (20:34)
[2021-04-10] MEDS: Topiramate 25 MG Tablet PO (20:34)
[2021-04-11 02:58] VITALS: PULSE 46
[2021-04-11 03:00] VITALS: BP 119/77; PULSE 59; RESP 16; TEMP 36.6; O2SAT 97
[2021-04-11] MEDS: ALPRAZolam 0.5 MG Tablet 2 MG PO ×2 (03:38→10:55)
[2021-04-11 05:45] VITALS: BP 129/69; PULSE 53; RESP 18; TEMP 36.3; O2SAT 96
[2021-04-11] MEDS: Acetaminophen 325 MG Tablet 650 MG PO (05:46)
--- NOTE | 2021-04-11 05:55 | EKG12_ITS ---
Test Reason : CHEST PAIN Blood Pressure : / mmHG Vent. Rate : 054 BPM Atrial Rate : 054 BPM P-R Int : 194 ms QRS Dur : 082 ms QT Int : 422 ms P-R-T Axes : 068 036 054 degrees QTc Int : 400 ms Sinus bradycardia Otherwise normal ECG Confirmed by MELANIE TAVERA, KATLIN ([id number]), fashion editor TAIWO GALLEGO ([id number]) on 04/13/2021 11:08:20 AM Referred By: ZULY Confirmed By:KATLIN NAVARRO MD
[2021-04-11 06:59] VITALS: PULSE 49
[2021-04-11 07:10] LABS: Absolute Lymphocyte Count 3.07 X10^3/uL (0.83-4.51); Basophil% 1.1 % (0-1); Eosinophil# 0.25 X10^3/uL; Eosinophils% 2.8 % (0-5); Hematocrit 46.1 % (40-54); Hemoglobin 14.7 g/dL (13.0-16.5); Lymphocyte # 3.07 X10^3/ul (0.83-4.51); Lymphocyte % 34.1 % (19-41); Mean Corp Hgb Conc 31.9 g/dL (32-36); Mean Corpuscular Hgb 28.8 pg (27.0-32.0); Mean Corpuscular Volume 90.2 fL (80-94); Mean Platelet Vol. 11.5 fl (6.2-12.0); Monocyte# 0.57 X10^3/uL; Monocyte% 6.3 % (0-10); NRBC Flagged by Analyzer 0 % (0-5); Neutrophil # 4.99 X10^3/uL (2.7-7.7); Neutrophil % 55.5 % (47-70); Platelet Count 270 K/mm3 (150-450); RBC Distribution Width CV 13.4 % (11.6-14.6); RBC Distribution Width SD 45.1 fl (35.1-43.9); Red Blood Count 5.11 M/mm3 (4.6-6.2)
[2021-04-11 07:38] LABS: Anion Gap 3 (5-15); BUN 19 mg/dL (7-18); BUN/Creat Ratio 16.5 RATIO (10-20); Calcium,Total 9.3 mg/dL (8.5-10.1); Chloride 109 mmol/L (98-107); Creatinine, Serum 1.15 mg/dL (0.70-1.30); EST Glomerular Filtration Rate 71 mL/min (>60); Est Glom Filt Rate - Afr Amer 86 mL/min (>60); Estimated Creatinine Clearance 69.45 ml/min; Glucose 93 mg/dL (74-106); Potassium 4.1 mmol/L (3.5-5.1); Sodium Level 139 mmol/L (136-145)
[2021-04-11 10:55] VITALS: BP 138/81; PULSE 61; RESP 18; TEMP 36.5; O2SAT 97
[2021-04-11] MEDS: Topiramate 25 MG Tablet PO (10:55)
[2021-04-11] MEDS: Bisoprolol Fumarate 5 MG Tablet PO (10:55)
[2021-04-11] MEDS: amLODIPine 10 MG Tablet PO (10:55)
--- NOTE | 2021-04-11 10:58 | PCM.DC ---
Discharge Instructions Follow Up Care Test Results: Test results from this visit will be discussed in further detail at your follow-up appointment, if applicable. Discharge Plan Admission Admit Date/Time: 04/10/21 14:17 Attending Provider: Orlando Villagran Primary Care Provider: Osmel Presley Instructions Patient Instructions: ED Chest Pain, Noncardiac Discharge Orders/Prescriptions Prescriptions: No Action alprazolam 2 mg tablet 2 mg PO Q6H PRN (Reason: Anxiety) RF: 0 bisoprolol fumarate 10 mg tablet 10 mg PO DAILY RF: 0 topiramate 25 mg tablet 25 mg PO BID RF: 0 Referrals / Follow Up: Osmel Presley DO [Primary Care Provider] -
--- NOTE | 2021-04-11 13:10 | STRESSREP_ITS ---
Stress Test Report Date: 04-11-2021 Procedure: Exercise tolerance test/imaging study Indications: Chest pain Consent: Per the patient Procedure: The patient exercised on a Rj protocol for 8 minutes completing Stage II and 2 minutes of Stage III achieving a peak heart rate of 141 bpm (84% predicted maximal heart rate) with a peak blood pressure 180/72 mmHg and a peak MET capacity of 9 METs. The baseline ECG demonstrated sinus bradycardia. The peak exercise ECG demonstrated somatic/motion artifact with no obvious ECG changes. There were no cardiac dysrhythmias pretest, during exercise, or recovery. The functional capacity was considered good. There was no complaint of chest discomfort during exercise or recovery. The examination was discontinued secondary to dyspnea. Impression: 1. Technically adequate (percent predicted maximal heart rate greater than 85%) exercise tolerance test 2. Peak exercise ECG with no obvious ECG changes 3. There were no cardiac dysrhythmias pretest, during exercise, or recovery 4. Nuclear images pending Myocardial perfusion imaging study: Technique: The patient was injected with 11.2 mCi of technetium 99m Cardiolite and subsequently rest SPECT Cardiolite nuclear imaging was obtained in the horizontal long, vertical long, and short axis views. The patient exercised on a Rj protocol for 8 minutes completing Stage II and 2 minutes of Stage III achieving a peak heart rate of 141 bpm (84% predicted maximal heart rate) with a peak blood pressure 180/72 mmHg and a peak MET capacity of 9 METs. The patient was injected with 33.5 mCi of technetium 99m Cardiolite and subsequently stress SPECT Cardiolite nuclear imaging was obtained in the horizontal long, vertical long, and short axis views. A gated Cardiolite study at peak stress was obtained. Interpretation: Rest and stress SPECT Cardiolite nuclear imaging status post realignment, normalization, and attenuation correction, demonstrates the appearance of relative uniform tracer uptake and myocardial perfusion appearing within normal limits. There is end systolic thickening and brightening. The gated Cardiolite study demonstrates myocardial thickening and inward wall motion. The reported LVEF is 72%. Impression: 1. Rest and stress SPECT Cardiolite nuclear imaging demonstrate relative uniform tracer uptake and myocardial perfusion appearing within normal limits. 2. The gated Cardiolite study reports an LVEF of 72%. This note was generated with [email or web address] software. It may contain incorrect words, spelling, and punctuation that were not noted in checking the note before signing.
--- NOTE | 2021-04-11 13:17 | PCM.DC ---
Discharge Instructions Diet Discharge Diet: No restrictions Activity Discharge Activity: Return to Normal Activity Weight Bearing Status: Full weight bearing Follow Up Care Test Results: Test results from this visit will be discussed in further detail at your follow-up appointment, if applicable. Discharge Plan Admission Admit Date/Time: 04/10/21 14:17 Primary Reason for Your Visit: chest pain Attending Provider: Orlando Villagran Primary Care Provider: Osmel Presley Instructions Patient Instructions: ED Chest Pain, Noncardiac Discharge Orders/Prescriptions Prescriptions: Continued alprazolam 2 mg tablet 2 mg PO Q6H PRN (Reason: Anxiety) RF: 0 bisoprolol fumarate 10 mg tablet 10 mg PO DAILY RF: 0 topiramate 25 mg tablet 25 mg PO BID RF: 0 Referrals / Follow Up: Osmel Presley DO [Primary Care Provider] - Disposition Disposition (needs filled in before D/C Order can be placed): Home, self care
--- NOTE | 2021-04-11 13:21 | PCM.DC ---
Discharge Instructions Diet Discharge Diet: No restrictions Activity Discharge Activity: Return to Normal Activity Weight Bearing Status: Full weight bearing Follow Up Care Test Results: Test results from this visit will be discussed in further detail at your follow-up appointment, if applicable. Discharge Plan Admission Admit Date/Time: 04/10/21 14:17 Primary Reason for Your Visit: chest pain Attending Provider: Orlando Villagran Primary Care Provider: Osmel Presley Instructions Patient Instructions: ED Chest Pain, Noncardiac Discharge Orders/Prescriptions Prescriptions: Continued alprazolam 2 mg tablet 2 mg PO Q6H PRN (Reason: Anxiety) RF: 0 bisoprolol fumarate 10 mg tablet 10 mg PO DAILY RF: 0 topiramate 25 mg tablet 25 mg PO BID RF: 0 Referrals / Follow Up: Osmel Presley DO [Primary Care Provider] - Within 2 Weeks Disposition Disposition (needs filled in before D/C Order can be placed): Home, self care
--- NOTE | 2021-04-11 13:35 | PHA.DC.MR ---
Pharmacy Service has performed discharge medication reconciliation for this patient. The patient's discharge medication list was reviewed for discrepancies and discrepancies were resolved. Home Medications alprazolam 2 mg PO Q6H PRN 04/10/21 bisoprolol fumarate 10 mg PO DAILY 04/10/21 topiramate 25 mg PO BID 04/10/21
--- NOTE | 2021-04-11 15:25 | DS.PCM_ITS ---
Providers Date of Admission: 04/10/21 Date of Discharge: 04/11/21 Primary Care Physician: Dr. Osmel Presley DO Reason For Visit: chest pain Diagnosis Discharge Diagnosis (1) Chest pain: Status: Acute Code(s): R07.9 - Chest pain, unspecified Plan: 1. Musculoskeletal chest pain #2 essential hypertension #3 chronic anxiety and depression Medications at Discharge Home Medications alprazolam 2 mg PO Q6H PRN 04/10/21 bisoprolol fumarate 10 mg PO DAILY 04/10/21 topiramate 25 mg PO BID 04/10/21 Hospital Course Operations None Procedures Nuclear stress test Summary of Care Provided Minutes Spent on Discharge: 30 Hospital Course: Patient was seen and examined in the emergency room at [facility], he came in for evaluation of precordial chest discomfort. Work-up in the emergency room included a chest x-ray, EKG, and cardiac isoenzymes all of which were unremarkable. Patient was placed in observation status on PCU, serial isoenzymes were obtained and these remain normal. Patient underwent a nuclear exercise stress test on 04/11/2021 that was negative for reversible ischemia. On examination he appeared in good health and spirits. Vital signs as documented. Skin warm and dry and without overt rashes. Neck without JVD, neck was supple, trachea midline, thyroid was normal. Lungs clear bilaterally, normal air movement was noted. Heart exam notable for regular rhythm, normal sounds and absence of murmurs, rubs or gallops. Abdomen unremarkable and without evidence of organomegaly, masses, or abdominal aortic enlargement. Bowel sounds are present, abdomen is not distended. Extremities nonedematous, no cyanosis was noted, no clubbing was noted. Neuro: Cranial nerves II through XII are grossly intact, no focal motor deficits were noted, sensation to light touch and pinprick intact, motor exam 5/5 throughout. Psych: Patient is alert and oriented x3, he does not appear anxious or depressed, he does not appear agitated. Patient appears stable for discharge on 04/11/2021. ABG / Lab / Microbiology Data Result Diagrams: 04/11/21 06:20 04/11/21 06:20 Laboratory: Laboratory Results - last 24 hr 04/10/21 04/10/21 04/11/21 17:13 20:20 06:20 WBC 9.0 RBC 5.11 Hgb 14.7 Hct 46.1 MCV 90.2 MCH 28.8 MCHC 31.9 L RDW Std Deviation 45.1 H RDW Coeff of Smith 13.4 Plt Count 270 MPV 11.5 Immature Gran % (Auto) 0.200 Neut % (Auto) 55.5 Lymph % (Auto) 34.1 Williams % (Auto) 6.3 Eos % (Auto) 2.8 Baso % (Auto) 1.1 H Absolute Neuts (auto) 5.0 Absolute Lymphs (auto) 3.07 Nucleated RBC % 0 Sodium Potassium Chloride Carbon Dioxide Anion Gap BUN Creatinine Estim Creat Clear Calc Est GFR (MDRD) Af Amer Est GFR (MDRD) Non-Af BUN/Creatinine Ratio Glucose Calcium Troponin I < 0.015 < 0.015 04/11/21 06:20 WBC RBC Hgb Hct MCV MCH MCHC RDW Std Deviation RDW Coeff of Smith Plt Count MPV Immature Gran % (Auto) Neut % (Auto) Lymph % (Auto) Williams % (Auto) Eos % (Auto) Baso % (Auto) Absolute Neuts (auto) Absolute Lymphs (auto) Nucleated RBC % Sodium 139 Potassium 4.1 Chloride 109 H Carbon Dioxide 27.0 Anion Gap 3 L BUN 19 H Creatinine 1.15 Estim Creat Clear Calc 69.45 Est GFR (MDRD) Af Amer 86 Est GFR (MDRD) Non-Af 71 BUN/Creatinine Ratio 16.5 Glucose 93 Calcium 9.3 Troponin I D/C Instructions Discharge Diet: No restrictions Discharge Activity: Return to Normal Activity Weight Bearing Status: Full weight bearing Meaningful Use Info Meaningful Use Diagnoses (Choose all that apply): None applicable Discharge Plan Admission Admit Date/Time: 04/10/21 14:17 Primary Reason for Your Visit: chest pain Attending Provider: Orlando Villagran Primary Care Provider: Osmel Presley Instructions Patient Instructions: ED Chest Pain, Noncardiac Discharge Orders/Prescriptions Prescriptions: Continued alprazolam 2 mg tablet 2 mg PO Q6H PRN (Reason: Anxiety) RF: 0 bisoprolol fumarate 10 mg tablet 10 mg PO DAILY RF: 0 topiramate 25 mg tablet 25 mg PO BID RF: 0 Referrals / Follow Up: Osmel Presley DO [Primary Care Provider] - Within 2 Weeks Disposition Disposition (needs filled in before D/C Order can be placed): Home, self care Visit Charges OBSV E&M: 26529 Observation care discharge
== END 2021-04-11 13:18 | disposition home or self-care (01) ==
LOC: ED 13:35 → PCU 14:28
PROVIDERS: Admitting Provider Student in an Organized Health Care Education/Training Program; Emergency Provider Emergency Medicine; PCP Preventive Medicine Occupational Medicine; Visit Provider Internal Medicine
DX: R07.89 Other chest pain (principal); I10 Essential (primary) hypertension; R06.02 Shortness of breath; M79.642 Pain in left hand; F17.200 Nicotine dependence, unspecified, uncomplicated; R42 Dizziness and giddiness; R00.1 Bradycardia, unspecified; F41.9 Anxiety disorder, unspecified; F32.9 Major depressive disorder, single episode, unspecified; Z79.899 Other long term (current) drug therapy
CPT/HCPCS: 36415; 71045; 78452; 80048; 84484; 85025; 85379; 93005; 93017; 99218; 99285; A9500; A4216; G0378

== ENCOUNTER → 2022-03-14 | Outpatient (CLI) | payer MEDICAID, SELFPAY ==
--- NOTE | 2022-03-14 08:29 | RAD_ITS ---
STUDY: X-RAY - LUMBAR SPINE REASON FOR EXAM: Male, 52 years old. Neuralgia Neuritis TECHNIQUE: 5 view(s) of the lumbar spine were obtained. COMPARISON: None FINDINGS: Normal lumbar lordosis. Mild dextroscoliosis centered at L2. 6 lumbar type vertebral bodies to There is a normal alignment of the vertebrae. There is multilevel endplate spondylosis of the lumbar vertebrae. There is multi-level degenerative disc disease with multi-level disc space narrowing. The soft tissue structures are unremarkable. RAD/L/S Spine Min 4 Views IMPRESSION: Mild extra scoliosis with diffuse degenerative disc disease. MRI would be useful. Electronically Signed: Hansel Song MD at 9:40 EDT ,
== END | disposition home or self-care (01) ==
PROVIDERS: PCP Preventive Medicine Occupational Medicine; Referring Provider Podiatrist; Visit Provider Podiatrist
DX: M79.2 Neuralgia and neuritis, unspecified (principal)
CPT/HCPCS: 72110

== ENCOUNTER 2023-06-06 17:31 | Inpatient (IN) | payer MEDICAID, SELFPAY ==
[2023-06-06] VITALS (7 sets, daily range): BP systolic 124–156; BP diastolic 89–132; PULSE 64–117; RESP 16–18; TEMP 36.4–37.2; O2SAT 95–99; BMI 19.3
[2023-06-06 18:51] LABS: Absolute Lymphocyte Count 1.52 X10^3/uL (0.83-4.51); Absolute Neutrophil Count 13.4 X10^3/uL (2.0-7.7); Basophil# 0.08 X10^3/uL; Basophil% 0.5 % (0-1); Hematocrit 49.7 % (40-54); Hemoglobin 16.8 g/dL (13.0-16.5); Lymphocyte # 1.52 X10^3/ul (0.83-4.51); Lymphocyte % 9.5 % (19-41); Mean Corp Hgb Conc 33.8 g/dL (32-36); Mean Corpuscular Hgb 29.7 pg (27.0-32.0); Mean Corpuscular Volume 87.8 fL (80-94); Mean Platelet Vol. 10.7 fl (6.2-12.0); Monocyte# 0.91 X10^3/uL; Monocyte% 5.7 % (0-10); NRBC Flagged by Analyzer 0 % (0-5); Neutrophil # 13.38 X10^3/uL (2.7-7.7); Neutrophil % 83.9 % (47-70); Platelet Count 387 K/mm3 (150-450); RBC Distribution Width CV 13.3 % (11.6-14.6); RBC Distribution Width SD 42.7 fl (35.1-43.9); Red Blood Count 5.66 M/mm3 (4.6-6.2)
--- NOTE | 2023-06-06 19:12 | RAD_ITS ---
INDICATION: chest pain EXAMINATION/TECHNIQUE: X-RAY - portable upright AP chest x-ray COMPARISON: 04/10/2021 FINDINGS: LINES/DEVICES: None. LUNGS: No consolidation, edema or effusion. No pneumothorax. MEDIASTINUM AND CARDIOVASCULAR STRUCTURES: Cardiac silhouette not enlarged. Central airways and mediastinal contour are unremarkable. BONES AND SOFT TISSUES: Unremarkable. RAD/Chest 1 View (Portable) IMPRESSION: No radiographic evidence of acute cardiopulmonary disease. Electronically Signed: Jose Guadalupe Valladares MD at 19:38 EDT ,
[2023-06-06 19:19] LABS: BNP,B-Type NATRIURETIC PEPTIDE 25.8 pg/mL (0-100)
--- NOTE | 2023-06-06 19:21 | EDS_ITS ---
HPI History of Present Illness Chief Complaint: General Illness Narrative Narrative: 53-year-old male presenting with concern for dehydration. He states he has not made urine in 2 days. He has not been able to eat or drink because of nausea. He reports for the last day he has not had any water. He has not had anything to eat since yesterday when he had a grilled cheese. The day before he had a [employer] cheeseburger. Patient states that typically his day starts with an episode of nausea and vomiting he gets better. He states this is a long-term issue but it has gotten better over the last few days. He has been working outside in the heat and has decreased water intake. Patient feels like he is having muscle cramps all over his body. PFSH PFSH Medical History Anemia Anxiety and depression Arthritis History of alcohol abuse Hypertension Migraines Tobacco use Home Medications alprazolam 2 mg tablet 2 mg PO Q6H PRN Anxiety 04/10/21 [History Last Taken 04/10/21] bisoprolol fumarate 10 mg tablet 10 mg PO DAILY BP 04/10/21 [History Last Taken 04/10/21] topiramate 25 mg tablet 25 mg PO BID MIGRAINE 04/10/21 [History Last Taken 04/10/21] Allergy/AdvReac Type Severity Reaction Status Date / Time duloxetine [From Cymbalta] Allergy Other Verified 06/06/23 17:32 quetiapine fumarate Allergy Other Verified 06/06/23 17:32 [From Seroquel] sumatriptan [From Imitrex] Allergy Other Verified 06/06/23 17:32 Family History (Updated 06/06/23 @ 21:[address] Britt Yanes MD) Father Lung cancer Mother CAD (coronary artery disease) Heart disease Hypertension Myocardial infarction Surgical History (Updated 06/06/23 @ 20:[address] Britt Yanes MD) H/O arthroscopic knee surgery H/O arthroscopy of shoulder Social History (Updated 06/06/23 @ 21:[address] Britt Yanes MD) household members: spouse Smoking Status: Light Smoker (<10/day) how long ago did patient quit smoking: Former up to 2 ppd cigarette tobacco use-->now 1-2 cig/day. alcohol intake: former details: Sober x ~ 6 years. substance use type: former substance user Date of last use: Former cannabis use. ROS ROS ED Constitutional Constitutional ED: Denies chills, fever(s) or sweats Eyes Eyes: Denies blurry vision or change in vision ENT ENT ED: Denies ear pain or sore throat Cardiovascular Cardiovascular: Denies chest pain, palpitations or racing heartbeat Respiratory/Chest Respiratory/Chest: Denies cough, dyspnea or sputum Gastrointestinal Gastrointestinal: Reports nausea and vomiting; Denies abdominal pain, constipation or diarrhea Genitourinary Genitourinary ED: Denies dysuria, hematuria or urinary frequency Musculoskeletal Musculoskeletal: Denies arthralgias, myalgias or neck pain Integumentary Denies abscess, Abrasions or rash Neurologic Neurologic: Denies headache(s), paresthesias or weakness Psychiatric Psychiatric: Denies anxiety, depression, suicidal ideation or suicidal thoughts Endocrine Endocrinology: Denies polydipsia or polyuria EXAM Physical Exam Const Vital Signs: 06/06/23 17:32 06/06/23 18:28 06/06/23 18:45 Temperature 97.6 F L Temperature Source Temporal Pulse Rate 117 H Respiratory Rate 16 Respiratory Pattern Normal Blood Pressure 124/89 H Blood Pressure Mean 100 Pulse Ox 97 Oxygen Delivery Method Room Air 06/06/23 19:41 Temperature Temperature Source Pulse Rate 88 Respiratory Rate 18 Respiratory Pattern Blood Pressure 141/103 H Blood Pressure Mean 115 Pulse Ox 96 Oxygen Delivery Method Room Air MDM MDM MDM Narrative Medical decision making narrative: Patient presenting with muscle spasms all over his body. He states he has not been eating and drinking well and has been working outside. He is concerned he is dehydrated. He is also stating he is having chest pain which is up under his ribs. Its very difficult to get him to narrow down the timeframe but it sound like over the last 3 days he had this chest pain. He does describe it as muscle spasms up under his ribs. Patient has been throwing up a lot. He initially reported just regular nausea vomiting but later stated that he had had been some rectal bleeding and clots as well as a weight loss over the last 17 months. Differential includes acute coronary syndrome, CHF, pneumonia, dehydration, electrolyte abnormalities, CHF, acute blood loss anemia, rhabdomyolysis, pancreatitis, malignancy. CBC was obtained to assess white blood cell count hemoglobin, platelets. White blood cell count of 16.0. He does have a left shift. Platelets are normal at 387. CMP was obtained to assess liver function, renal function, electrolytes, glucose. This shows an elevated bilirubin at 1.2. Other LFTs are normal. Creatinine elevated at 2.65 which is new. CO2 is low at 18. Anion gap is 16. Patient was given 2 L of normal saline. CPK returned at 1032. High-sensitivity troponin is 149. Delta troponin is 142. Chest x-ray interpretation shows no acute cardiopulmonary process. Radiologist interprets this and agrees. EKG is a normal sinus rhythm at a rate of 97 bpm with a lot of artifact but no obvious ST elevations or depressions. Given patient's dehydration, rhabdomyolysis, elevated troponin I think he needs to be admitted. Discussed with the hospitalist. Given the patient's recent GI bleeding we did withhold aspirin and heparin. Impression: 1. Chest pain 2. NSTEMI 3. Abdominal pain 4. GI bleed 5. Leukocytosis 6. Rhabdomyolysis 7. Acute kidney injury Lab Data Labs: Laboratory Results - last 24 hr 06/06/23 18:41 WBC 16.0 H RBC 5.66 Hgb 16.8 H Hct 49.7 MCV 87.8 MCH 29.7 MCHC 33.8 RDW Std Deviation 42.7 RDW Coeff of Smith 13.3 Plt Count 387 MPV 10.7 Immature Gran % (Auto) 0.400 Neut % (Auto) 83.9 H Lymph % (Auto) 9.5 L [place] % (Auto) 5.7 Eos % (Auto) 0.0 Baso % (Auto) 0.5 Absolute Neuts (auto) 13.4 H Absolute Lymphs (auto) 1.52 Nucleated RBC % 0 Sodium 133 L Potassium 4.5 Chloride 99 Carbon Dioxide 18.0 L Anion Gap 16 H BUN 27 H Creatinine 2.65 H Estim Creat Clear Calc 24.85 Est GFR (MDRD) Af Amer 32 L Est GFR (MDRD) Non-Af 27 L BUN/Creatinine Ratio 10.2 Glucose 110 H Calcium 11.8 H Magnesium 2.7 H Total Bilirubin 1.20 H Direct Bilirubin 0.29 AST 34 ALT 26 Alkaline Phosphatase 90 Total Creatine Kinase 1032 H Troponin I High Sens 149 H* B-Natriuretic Peptide 25.8 Total Protein 9.5 H Albumin 5.5 H Globulin 4.0 Lipase 21 Radiography Diagnostic Testing: Clinical Impression(s) from Imaging Studies Chest X-Ray 06/06/23 19:12 IMPRESSION: No radiographic evidence of acute cardiopulmonary disease. Electronically Signed: Jose Guadalupe Valladares MD at 19:38 EDT Reading Location ID and State: [facility] [place] Tel , Service support , Discharge Plan Triage Chief Complaint: General Illness ED Provider: Timothy Swain Dx/Rx/DC Orders Primary Care Provider: Osmel Presley
[2023-06-06] MEDS: 0.9% Normal Saline 1,000 ML 999 ML IV ×2 (19:34→23:23)
[2023-06-06] MEDS: Ondansetron 4 MG/2 ML Vial IV ×2 (19:37→23:27)
[2023-06-06 19:43] LABS: Anion Gap 16 (5-15); BUN 27 mg/dL (7-18); BUN/Creat Ratio 10.2 RATIO (10-20); Calcium,Total 11.8 mg/dL (8.5-10.1); Chloride 99 mmol/L (98-107); Creatinine, Serum 2.65 mg/dL (0.70-1.30); EST Glomerular Filtration Rate 27 mL/min (>60); Est Glom Filt Rate - Afr Amer 32 mL/min (>60); Estimated Creatinine Clearance 24.85 ml/min; Glucose 110 mg/dL (74-106); Potassium 4.5 mmol/L (3.5-5.1); Sodium Level 133 mmol/L (136-145); Troponin-I HS 149 pg/mL (3.0-78.0)
[2023-06-06 19:55] LABS: AST(SGOT) 34 U/L (15-37); Alanine Aminotransfer ALT/SGPT 26 U/L (16-61); Albumin, Serum 5.5 g/dL (3.2-5.0); Alkaline Phosphatase 90 U/L (45-117); Bilirubin, Direct 0.29 mg/dL (0.00-0.30); CPK Total, Creatine Kinase 1032 U/L (39-308); Lipase 21 U/L (13-75); Magnesium 2.7 mg/dL (1.6-2.6); Protein, Total 9.5 g/dL (6.4-8.2)
--- NOTE | 2023-06-06 20:42 | HP.PCM.HOS_ITS ---
HPI - General General Date of Admission: 06/06/23 Date of Service: 06/06/23 Chief Complaint: N/V, dehydration. HPI Narrative The patient is a 53 y/o M w/ PMHx: Former EtOH abuse (sober x 6 years), Anxiety and Depression, Hypertension, OA, Tobacco use, Chronic migraines who presents to the [facility] ED on 06/06/23 with history of recent onset more severe significant nausea over the last 2 to 3 days with inability to tolerate any oral intake with significant decline in any urine output over the last 48 hours but he has had this more long-term in addition to history of significant laboring outside with onset of also significant muscle cramps, lightheadedness and dizziness with midsternal nonradiating mild to moderate chest pain ongoing for ~ 1 week but more severe also over the last 3 days with his other symptoms prompting eventual ED evaluation. Patient works at the discomfort is associated with certain movements and activities as well as as deep inspiratory effort. He does note that he becomes short of breath with even minimal activity. He also reports over the last 17 months an approximate 70 pound weight loss without specific intention with lack of appetite as well as the intractable nausea and emesis although more severe over the last 3 days as noted in addition to following lengthy discussion intermittent poly blood per rectum sometimes significant and unfortunately he has not talked to any healthcare provider about the situation. Work-up in the ED included T97.6, heart rate initially 117 with most recent repeat 88, BP initially 124/89 with most recent repeat 141/103, respiratory rate 16, 97% on room air, CBC with WC 16, hemoglobin 16.8, platelet 387 with left shift, CMP with sodium 133, dioxide 18, anion gap 16, BUN/creatinine 27/2.65, glucose 110, calcium 11.8 with corrected calcium 10.6 of note, magnesium 2.7, T. bili 1.20, total creatinine kinase 1032, troponin 149, BNP 25.8, lipase 21 otherwise hepatic profile not marked appearing, chest x-ray with no acute cardiopulmonary findings, EKG with SR, notable artifact without obvious acute evidence of ischemia. In the ED patient ministered 1 L normal saline as well as Zofran 4 mg IM x1. Following discussions with patient's reviewed case with ED physician given concern for also GI bleed and likely underlying cancer given this presentation and story with Protonix 80 mg x 1 and drip initiated as well as IV Rocephin given history of alcohol abuse although he has been sober for approximately 6 years to be cautious with planned also GI consultation. PFSH Medical History Anemia Anxiety and depression Arthritis History of alcohol abuse Hypertension Migraines Tobacco use Home Medications alprazolam 2 mg tablet 2 mg PO Q6H PRN Anxiety 04/10/21 [History Last Taken 04/10/21] bisoprolol fumarate 10 mg tablet 10 mg PO DAILY BP 04/10/21 [History Last Taken 04/10/21] Allergy/AdvReac Type Severity Reaction Status Date / Time duloxetine [From Cymbalta] Allergy Other Verified 06/06/23 17:32 quetiapine fumarate Allergy Other Verified 06/06/23 17:32 [From Seroquel] sumatriptan [From Imitrex] Allergy Other Verified 06/06/23 17:32 Family History (Updated 06/06/23 @ 21:[address] Britt Yanes MD) Father Lung cancer Mother CAD (coronary artery disease) Heart disease Hypertension Myocardial infarction Surgical History (Updated 06/06/23 @ 20:[address] Britt Yanes MD) H/O arthroscopic knee surgery H/O arthroscopy of shoulder Social History (Updated 06/06/23 @ 21:[address] Britt Yanes MD) household members: spouse Smoking Status: Former smoker how long ago did patient quit smoking: Former up to 2 ppd cigarette tobacco use-->now 1-2 cig/day. alcohol intake: former details: Sober x ~ 6 years. substance use type: former substance user Date of last use: Former cannabis use. ROS ROS Narrative Admission Review of Systems: CONSTITUTIONAL: No weight loss, fever, chills, + weakness or fatigue. HEENT: + LH, dizziness. Eyes: No visual loss, blurred vision, double vision or yellow sclerae. Ears, Nose, Throat: No hearing loss, sneezing, congestion, runny nose or sore throat. SKIN: No rash or itching, lesions, wounds. CARDIOVASCULAR: + LH, dizziness, chest pain, No palpitations, edema, orthopnea, syncopal events. RESPIRATORY: + Shortness of breath, occasional cough without marked sputum, occasional wheezing, No hemoptysis. GASTROINTESTINAL: + anorexia, nausea, vomiting, occasional loose stool, BRBPR. No abdominal pain, melena. GENITOURINARY: No dysuria, frequency, urgency or retention. NEUROLOGICAL: + LH, dizziness. No syncope, paralysis, ataxia, numbness or tingling in the extremities, focal weakness, change in bowel or bladder control, seizure. MUSCULOSKELETAL: + muscle, back pain, joint pain or stiffness. HEMATOLOGIC: + bleeding or bruising. LYMPHATICS: No enlarged nodes. No history of splenectomy. PSYCHIATRIC: No history of depression or anxiety. ENDOCRINOLOGIC: No reports of sweating, cold or heat intolerance. No polyuria or polydipsia. ALLERGIES: No history of asthma, hives, eczema or rhinitis. Vital Signs Vital Signs Vital Signs: 06/06/23 17:32 06/06/23 18:28 06/06/23 18:45 Temperature 97.6 F L Temperature Source Temporal Pulse Rate 117 H Respiratory Rate 16 Respiratory Pattern Normal Blood Pressure 124/89 H Blood Pressure Mean 100 Pulse Ox 97 Oxygen Delivery Method Room Air 06/06/23 19:41 Temperature Temperature Source Pulse Rate 88 Respiratory Rate 18 Respiratory Pattern Blood Pressure 141/103 H Blood Pressure Mean 115 Pulse Ox 96 Oxygen Delivery Method Room Air Weight Weight: 123 lb Body Mass Index (BMI) 19.3 Physical Exam Narrative Physical Examination: General: Awake, alert, oriented x 3 and cooperative, seated in ED bed, fatigued, anxious, reporting significant muscle spasms diffusely. Skin: Normal color, normal turgor, no icterus, no cyanosis. HEENT: AT/NC, EOMI, PERRLA, dry MM, no carotid bruits or JVD noted. Lungs: Mildly diminished, greater bases, appropriate effort, no rales, ronchi or wheezing. Heart: Mildly tachycardic with regular rhythm; no gallop, rub audible. Abdomen: Soft, NTTP, no obvious distention, hyperactive BS, no HSM. Extremities: No cyanosis, clubbing, or edema, notable fat and muscle loss evidence. Neurological: Patient awake, alert, oriented as noted, cognitive function intact; pupils equally reactive to light and accommodation, cranial nerves grossly normal, moving all 4 extremities, no focal deficits, strength moderately to severely global decrease secondary to acute presentation. Psychiatric: Affect appears fatigued, uncomfortable appearing, no acute evidence of depressive or anxiety feelings. Results Lab / Micro Data 06/07/23 02:23 06/07/23 02:23 Labs: Laboratory Results - last 24 hr 06/06/23 18:41: WBC 16.0 H, RBC 5.66, Hgb 16.8 H, Hct 49.7, MCV 87.8, MCH 29.7, MCHC 33.8, RDW Std Deviation 42.7, RDW Coeff of Smith 13.3, Plt Count 387, MPV 10.7, Immature Gran % (Auto) 0.400, Neut % (Auto) 83.9 H, Lymph % (Auto) 9.5 L, Anderson % (Auto) 5.7, Eos % (Auto) 0.0, Baso % (Auto) 0.5, Absolute Neuts (auto) 13.4 H, Absolute Lymphs (auto) 1.52, Nucleated RBC % 0, Sodium 133 L, Potassium 4.5, Chloride 99, Carbon Dioxide 18.0 L, Anion Gap 16 H, BUN 27 H, Creatinine 2.65 H, Estim Creat Clear Calc 24.85, Est GFR (MDRD) Af Amer 32 L, Est GFR (MDRD) Non-Af 27 L, BUN/Creatinine Ratio 10.2, Glucose 110 H, Calcium 11.8 H, Magnesium 2.7 H, Total Bilirubin 1.20 H, Direct Bilirubin 0.29, AST 34, ALT 26, Alkaline Phosphatase 90, Total Creatine Kinase 1032 H, Troponin I High Sens 149 H*, B-Natriuretic Peptide 25.8, Total Protein 9.5 H, Albumin 5.5 H, Globulin 4.0, Lipase 21 Radiology Impression Chest X-Ray 06/06/23 19:12 IMPRESSION: No radiographic evidence of acute cardiopulmonary disease. Electronically Signed: Jose Guadalupe Valladares MD at 19:38 EDT , Assessment & Plan Assessment/Plan (1) GI bleed: PLAN: Plan The patient is a 53 y/o M w/ PMHx: Former EtOH abuse (sober x 6 years), Anxiety and Depression, Hypertension, OA, Tobacco use, Chronic migraines who presents to the [facility] ED on 06/06/23 with history of recent onset more severe significant nausea over the last 2 to 3 days with inability to tolerate any oral intake with significant decline in any urine output over the last 48 hours but he has had this more long-term in addition to history of significant laboring outside with onset of also significant muscle cramps, lightheadedness and dizziness with mid sternal nonradiating mild to moderate chest pain ongoing for ~ 1 week but more severe also over the last 3 days with his other symptoms in addition to 17 month timeline approximate 70 pound weight loss without specific intention with lack of appetite as well as intermittent poly blood per rectum. #1. Unintentional dramatic weight loss, intractable nausea and emesis with concurrent acute GI bleed, high suspicion underlying cancer etiology: We will admit to PCU given elevated cardiac enzyme as noted, maintain on telemetry monitoring, will allow clears with n.p.o. status transition at midnight, per discussion with ED physician initiated on Protonix 80 mg x 1 with then transition to drip, will continue IV Rocephin for possible underlying cirrhotic disease given prior alcohol abuse history although sober x6 years, will cycle H&H's, will have as needed pain and antiemetic regimen, continue aggressive hydration as noted, gastroenterology consulted and evaluation pending. Again patient will benefit greatly from imaging however at this point given significant acute kidney injury will defer immediate imaging and reassess once renal function repeat obtained following aggressive hydration. #2. Indeterminate cardiac enzyme possibly NSTEMI likely demand ischemia given acute presentation as noted #3, #4 with Chest pain although suspect highly MS related: EKG with SR, notable artifact without obvious acute evidence of ischemia, CXR w/ no acute cardiopulmonary finding, Trop elevated with initial 149, will admit to PCU, maintain on a monitored bed, continue serial cardiac enzymes and EKGs. Will defer ASA, heparin drip, statin give suspected demand related and also GI bleed suspected with concurrently acute rhabdomyolysis thus preference to defer statin immediately. ECHO requested. NG, morphine. Cardiology consulted, pending. #3. Acute rhabdomyolysis: Admission total creatinine kinase 1032, will continue to aggressively hydrate, monitor urine output, monitor renal function as well as liver function and repeat total CK in AM. #4. Acute kidney injury: Secondary to significant dehydration and poor oral intake. Admission BUN/Cr 27/2.65, prior baseline creatinine noted to be 0.9-1.1 however this is remote and last noted 04/11/2021. Will hydrate, hold nephrotoxic medications and repeat chemistry in AM. If no improvement would plan FeNa and renal ultrasound assessment. #5. Elevated anion gap, suspect multifactorial given JOHN and acute rhabdomyolysis with severe dehydration: Patient with as noted JOHN as well as rhabdomyolysis however glucose is 110 therefore be cautious we will obtain urinalysis and serum acetone as well as hemoglobin A1c, aggressively hydrating with plan repeat CMP trending. #6. Hypertension: Continue home regimen including bisoprolol with further adjustments as needed, PRN hydralazine. #7. Anxiety and depression: Patient is on a notably high dose every 6 hours of alprazolam, will cautiously continue to avoid withdrawal but certainly would benefit from alternate treatment considerations. #8. Tobacco Abuse: Encouraged cessation, inpatient consultation per RT, NR if desired. #9. Chronic migraines: We will continue patient home topiramate regimen. #10. Former alcohol abuse: Sober times approximately 6 years, encourage continued sobriety. #11. DVT prophylaxis: SCDs. #12. CODE STATUS: Full code. Admission Evaluation Time spent evaluating chart, patient history, patient evaluation, care planning and discussion with specialists: 75 minutes. Charges/Coding Visit Charges Inpatient E&M: 58143 Init Hosp L3
[2023-06-06 21:52] LABS: Magnesium 2.5 mg/dL (1.6-2.6); Troponin-I HS 142 pg/mL (3.0-78.0)
--- NOTE | 2023-06-06 21:52 | ED.RN ---
Critical Lab result 2nd troponin 142 Dr. Swain notified.
[2023-06-06 21:55] LABS: Partial Thromboplast Time 28.9 Seconds (24.1-36.2); Prothrombin Time (Protime)PT. 13.6 SECONDS (11.7-14.9)
[2023-06-06] MEDS: Ceftriaxone 1 GM/50 ML BAG IV (21:56)
[2023-06-06 22:04] LABS: Mucous, Urine 0 SEEN /hpf (<or=2+); Squamous Epithelial Cells - UA 0 SEEN /hpf (0-5); White Blood Cells 0 SEEN /hpf (0-5)
[2023-06-06 22:07] LABS: Color, Urine Yellow (Yellow); Glucose, Dipstick Normal (Normal); Ketone-Dipstick 50 mg/dl (Negative); Leukocyte Esterase-Dipstick 25 /ul (Negative); Nitrite-Dipstick Negative (Negative); Occult Blood-Urine 10 /ul (Negative); Protein-Dipstick 30 mg/dl (Negative); Urine Clarity Clear (Clear); Urine Urobilinogen Normal (Normal)
[2023-06-06 22:14] LABS: Urine Bilirubin Dipstick 1 mg/dL (Negative)
[2023-06-06 22:18] LABS: Hyaline Cast 5-10 SEEN /lpf (0-5)
[2023-06-06 22:19] LABS: Bacteria RARE /hpf (None Seen); Red Blood Cells-Urine 0-5 SEEN /hpf (0-5)
--- NOTE | 2023-06-06 22:44 | ECHOD_ITS ---
Reason For Study: NSTEMI Procedure This was a 2D Doppler, Color Flow transthoracic echocardiogram. Exam performed portable in patient room. Left Ventricle Normal LV size. Left ventricular systolic function is normal. The estimated ejection fraction is 65 %. Normal diastology for age. No regional wall motion abnormalities noted. Right Ventricle Normal RV size. Normal systolic function. Atria Normal left atrium. Normal right atrium. Mitral Valve The mitral valve is structurally normal. No prolapse or stenosis seen. Trivial mitral valve insufficiency. Tricuspid Valve Normal tricuspid valve. Trivial tricuspid valve insufficiency. Unable to estimate RV systolic pressure due to insufficient tricuspid regurgitant envelope. Aortic Valve Trisinus/trileaflet aortic valve. There is no aortic stenosis. No aortic valve insufficiency. Pulmonic Valve The pulmonic valve is not well visualized. Great Vessels Normal aortic root. Pericardium/Pleural No pericardial effusion. MMode/2D Measurements & Calculations LVIDd: 4.3 cm IVSd: 0.85 cm LAV(MOD-bp): 34.3 ml LVIDs: 2.6 cm LVPWd: 0.90 cm LAV(MOD-bp) Indexed: 20.8 ml/m2 RVDd: 3.1 cm FS: 40.1 % LAV(MOD-sp2): 35.3 ml LAV(MOD-sp4): 28.1 ml SV(MOD-sp4): 55.7 ml LVAd ap4: 27.1 cm2 LVAd ap2: 22.7 cm2 LVLd ap4: 8.8 cm LVLd ap2: 8.0 cm EDV(MOD-sp4): 71.7 ml EDV(MOD-sp2): 53.1 ml EDV(sp4-el): 70.8 ml EDV(sp2-el): 54.4 ml LVAs ap4: 11.6 cm2 LVAs ap2: 13.0 cm2 LVLs ap4: 7.5 cm LVLs ap2: 6.9 cm ESV(MOD-sp4): 16.0 ml ESV(MOD-sp2): 20.8 ml ESV(sp4-el): 15.4 ml ESV(sp2-el): 20.8 ml EF(MOD-sp4): 77.7 % EF(MOD-sp2): 60.9 % EF(sp4-el): 78.3 % SV(MOD-sp2): 32.3 ml SV(sp4-el): 55.4 ml LA A4 area: 12.4 cm2 TAPSE: 2.8 cm RA A4 area: 11.7 cm2 Time Measurements MV dec time: 0.20 sec Doppler Measurements & Calculations MV E max wilver: 73.9 cm/sec Lat Peak E' Wilver: 14.6 cm/sec Med Peak E' Wilver: 12.6 cm/sec MV A max wilver: 53.8 cm/sec E/E' lat: 5.1 E/E' med: 5.8 MV E/A: 1.4 MV dec slope: 371.5 cm/sec2 Ao V2 max: 121.1 cm/sec LV V1 max: 113.5 cm/sec Ao max P.9 mmHg LV V1 max P.2 mmHg PA V2 max: 88.5 cm/sec ECHO/Echo Complete Interpretation Summary The estimated ejection fraction is 65 %. Trivial mitral valve insufficiency. Trivial tricuspid valve insufficiency. Ordering Physician: Britt Yanes Referring Physician: MD Sakina Osmel Performed By: Lotus Umana RDCS
--- NOTE | 2023-06-06 22:44 | EKG12_ITS ---
Test Reason : CP ADMIT Blood Pressure : / mmHG Vent. Rate : 060 BPM Atrial Rate : 060 BPM P-R Int : 174 ms QRS Dur : 076 ms QT Int : 416 ms P-R-T Axes : 081 064 063 degrees QTc Int : 416 ms Normal sinus rhythm Normal ECG When compared with ECG of 11-APR-2021 05:05, No significant change was found Confirmed by CHRISTINA TAVERA, KALPANA ([id number]), editor managing newspaper TAIWO GLALEGO ([id number]) on 06/17/2023 7:22:57 AM Referred By: Confirmed By:KALPANA VASQUEZ MD
[2023-06-06 23:43] LABS: Hematocrit 45.3 % (40-54); Hemoglobin 15.2 g/dL (13.0-16.5)
[2023-06-06 23:53] LABS: ALB/GLOB Ratio 1.2 RATIO (0.9-2.4); AST(SGOT) 32 U/L (15-37); Alanine Aminotransfer ALT/SGPT 23 U/L (16-61); Albumin, Serum 4.5 g/dL (3.2-5.0); Alkaline Phosphatase 74 U/L (45-117); Anion Gap 11 (5-15); BUN 27 mg/dL (7-18); BUN/Creat Ratio 14.6 RATIO (10-20); Calcium,Total 9.8 mg/dL (8.5-10.1); Chloride 102 mmol/L (98-107); Creatinine, Serum 1.85 mg/dL (0.70-1.30); EST Glomerular Filtration Rate 41 mL/min (>60); Est Glom Filt Rate - Afr Amer 49 mL/min (>60); Estimated Creatinine Clearance 37.01 ml/min; Globulin 3.6 g/dL (2.2-4.2); Glucose 125 mg/dL (74-106); Potassium 4.5 mmol/L (3.5-5.1); Protein, Total 8.1 g/dL (6.4-8.2); Sodium Level 134 mmol/L (136-145)
[2023-06-07] MEDS: Topiramate 25 MG Tablet PO ×3 (00:05→22:29)
[2023-06-07 00:12] LABS: Hemoglobin A1c 5.7 % (3.8-5.6)
[2023-06-07] MEDS: 0.9% Normal Saline 1,000 ML 999 ML IV (00:46)
[2023-06-07] MEDS: 0.9% Normal Saline 1,000 ML 150 ML IV ×4 (02:01→21:45)
[2023-06-07 02:35] LABS: Absolute Neutrophil Count 9.5 X10^3/uL (2.0-7.7); Basophil# 0.08 X10^3/uL; Basophil% 0.7 % (0-1); Eosinophil# 0.03 X10^3/uL; Eosinophils% 0.2 % (0-5); Hematocrit 38.5 % (40-54); Hemoglobin 13.1 g/dL (13.0-16.5); Mean Corpuscular Hgb 31.2 pg (27.0-32.0); Mean Corpuscular Volume 91.7 fL (80-94); Mean Platelet Vol. 10.6 fl (6.2-12.0); Monocyte# 0.81 X10^3/uL; Monocyte% 6.7 % (0-10); NRBC Flagged by Analyzer 0 % (0-5); Neutrophil # 9.49 X10^3/uL (2.7-7.7); Neutrophil % 78.1 % (47-70); Platelet Count 265 K/mm3 (150-450); RBC Distribution Width CV 13.4 % (11.6-14.6); RBC Distribution Width SD 45.2 fl (35.1-43.9); White Blood Count 12.2 K/mm3 (4.4-11.0)
[2023-06-07 02:49] LABS: Troponin-I HS 100 pg/mL (3.0-78.0)
[2023-06-07 03:29] LABS: ALB/GLOB Ratio 1.3 RATIO (0.9-2.4); AST(SGOT) 28 U/L (15-37); Alanine Aminotransfer ALT/SGPT 17 U/L (16-61); Albumin, Serum 3.6 g/dL (3.2-5.0); Alkaline Phosphatase 59 U/L (45-117); Anion Gap 7 (5-15); BUN 24 mg/dL (7-18); BUN/Creat Ratio 15.7 RATIO (10-20); CPK Total, Creatine Kinase 1151 U/L (39-308); Calcium,Total 8.2 mg/dL (8.5-10.1); Chloride 110 mmol/L (98-107); Cholesterol 118 mg/dL (200); Creatinine, Serum 1.53 mg/dL (0.70-1.30); EST Glomerular Filtration Rate 50 mL/min (>60); Est Glom Filt Rate - Afr Amer 61 mL/min (>60); Estimated Creatinine Clearance 44.75 ml/min; Globulin 2.7 g/dL (2.2-4.2); Glucose 121 mg/dL (74-106); High Density Lipoprotein 55 mg/dL; Potassium 4.1 mmol/L (3.5-5.1); Protein, Total 6.3 g/dL (6.4-8.2); Sodium Level 138 mmol/L (136-145); Triglycerides 48 mg/dL; Very Low Density Lipoprotein 10 mg/dL (5-40)
[2023-06-07 04:30] VITALS: O2SAT 98
[2023-06-07 04:31] VITALS: BP 115/71; PULSE 63; RESP 18; TEMP 36.6; O2SAT 98
[2023-06-07] MEDS: ALPRAZolam 0.5 MG Tablet 2 MG PO ×3 (04:39→23:53)
[2023-06-07 07:30] VITALS: O2SAT 98
--- NOTE | 2023-06-07 07:47 | PN.HOSP_ITS ---
Reason for Visit Reason for Visit: Diagnoses Gastrointestinal hemorrhage, unspecified (06/06/23) Subjective Subjective Follow-up for multiple issues mainly dehydration with cramping of muscles. Objective Data Objective Data Vital Signs: Vital Signs Temp Pulse Resp BP Pulse Ox O2 Del Method 97.9 F 63 18 115/71 98 Room Air 06/07/23 04:31 06/07/23 04:31 06/07/23 04:31 06/07/23 04:31 06/07/23 04:31 06/07/23 04:31 Oxygen Delivery Method Room Air Weight: 127 lb 13.89 oz Body Mass Index (BMI) 20.0 Intake & Output: Intake and Output for Last 24 Hours 06/05/23 06/06/23 06/07/23 23:59 23:59 23:59 Intake Total 1290 / 1290 2035 / 2035 Output Total 550 / 550 Balance 1290 / 1290 1485 / 1485 Lab / Micro Data 06/07/23 02:23 06/07/23 02:23 Labs: Laboratory Results - last 24 hr 06/06/23 18:41: WBC 16.0 H, RBC 5.66, Hgb 16.8 H, Hct 49.7, MCV 87.8, MCH 29.7, MCHC 33.8, RDW Std Deviation 42.7, RDW Coeff of Smith 13.3, Plt Count 387, MPV 10.7, Immature Gran % (Auto) 0.400, Neut % (Auto) 83.9 H, Lymph % (Auto) 9.5 L, Mcminn % (Auto) 5.7, Eos % (Auto) 0.0, Baso % (Auto) 0.5, Absolute Neuts (auto) 13.4 H, Absolute Lymphs (auto) 1.52, Nucleated RBC % 0, Sodium 133 L, Potassium 4.5, Chloride 99, Carbon Dioxide 18.0 L, Anion Gap 16 H, BUN 27 H, Creatinine 2.65 H, Estim Creat Clear Calc 24.85, Est GFR (MDRD) Af Amer 32 L, Est GFR (MDRD) Non-Af 27 L, BUN/Creatinine Ratio 10.2, Glucose 110 H, Calcium 11.8 H, Magnesium 2.7 H, Total Bilirubin 1.20 H, Direct Bilirubin 0.29, AST 34, ALT 26, Alkaline Phosphatase 90, Total Creatine Kinase 1032 H, Troponin I High Sens 149 H*, B-Natriuretic Peptide 25.8, Total Protein 9.5 H, Albumin 5.5 H, Globulin 4.0, Lipase 21 06/06/23 21:10: Magnesium 2.5, Troponin I High Sens 142 H* 06/06/23 21:18: PT 13.6, INR 1.0, APTT 28.9, Acetone Level SMALL H 06/06/23 22:00: Urine Color Yellow, Urine Clarity Clear, Urine pH 5.0, Ur Specific [place] 1.020, Urine Protein 30 H, Urine Glucose (UA) Normal, Urine Ketones 50 H, Urine Occult Blood 10 H, Urine Nitrite Negative, Urine Bilirubin 1 H, Urine Urobilinogen Normal, Ur Leukocyte Esterase 25 H, Urine RBC 0-5 SEEN, Urine WBC 0 SEEN, Ur Squamous Epith Cells 0 SEEN, Urine Bacteria RARE, Hyaline Casts 5-10 SEEN, Urine Mucus 0 SEEN 06/06/23 23:19: Hgb 15.2, Hct 45.3, Sodium 134 L, Potassium 4.5, Chloride 102, Carbon Dioxide 21.0, Anion Gap 11, BUN 27 H, Creatinine 1.85 H, Estim Creat Clear Calc 37.01, Est GFR (MDRD) Af Amer 49 L, Est GFR (MDRD) Non-Af 41 L, BUN/Creatinine Ratio 14.6, Glucose 125 H, Hemoglobin A1c 5.7 H, Calcium 9.8, Total Bilirubin 0.80, AST 32, ALT 23, Alkaline Phosphatase 74, Total Protein 8.1, Albumin 4.5, Globulin 3.6, Albumin/Globulin Ratio 1.2 06/07/23 02:23: WBC 12.2 H, RBC 4.20 L, Hgb 13.1, Hct 38.5 L, MCV 91.7, MCH 31.2, MCHC 34.0, RDW Std Deviation 45.2 H, RDW Coeff of Smith 13.4, Plt Count 265, MPV 10.6, Immature Gran % (Auto) 0.300, Neut % (Auto) 78.1 H, Lymph % (Auto) 14.0 L, Mcminn % (Auto) 6.7, Eos % (Auto) 0.2, Baso % (Auto) 0.7, Absolute Neuts (auto) 9.5 H, Absolute Lymphs (auto) 1.70, Nucleated RBC % 0 Sodium 138, Potassium 4.1, Chloride 110 H, Carbon Dioxide 21.0, Anion Gap 7, BUN 24 H, Creatinine 1.53 H, Estim Creat Clear Calc 44.75, Est GFR (MDRD) Af Amer 61, Est GFR (MDRD) Non-Af 50 L, BUN/Creatinine Ratio 15.7, Glucose 121 H, Calcium 8.2 L, Total Bilirubin 0.60, AST 28, ALT 17, Alkaline Phosphatase 59, Total Creatine Kinase 1151 H, Troponin I High Sens 100 H, Total Protein 6.3 L, Albumin 3.6, Globulin 2.7, Albumin/Globulin Ratio 1.3, Triglycerides 48, Cholesterol 118, LDL Cholesterol 53, VLDL Cholesterol 10, HDL Cholesterol 55 Radiography Diagnostic Testing: Radiology Impression Chest X-Ray 06/06/23 19:12 IMPRESSION: No radiographic evidence of acute cardiopulmonary disease. Electronically Signed: Jose Guadalupe Valladares MD at 19:38 EDT , Physical Exam Narrative Patient is stated he has vomited 2 times red blood liquid in the last 2 to 3 mon ths. His hemoglobin is 13.1. 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 He was having muscle cramping all over body including chest but denies typical angina chest pain. He stated he had EGD more than 2 to 3 years ago and states was fine. He also vomits early in the morning because he gets a lot of postnasal drip when he wake up. He lost 70 pounds in last 17 months. He is on high dose of Xanax 2 mg every 6 hourly prescribed by PCP. Physical exam General: Alert, Oriented x3, Cooperative patient not in distress thin looking gentleman. HEENT: Atraumatic, PERRLA, EOMI, Normocephalic Oral: Oral mucosa moist. No Gingival or Mucosal Lesions/ Ulcerations Neck: Supple, No JVD, Negative Carotid Bruits Lungs: Air entry diminished in bilateral lung bases. No crepitation/rhonchi Cardiovascular: Heart rate 58/min, usually 72/min., Normal S1, Normal S2, No murmurs Abdomen: Bowel Sounds Present, Soft, Non Tender, Non-Distended : No renal angle tenderness. No suprapubic tenderness. Extremities: No edema, Capillary Refill Less than 3 Seconds. Had foot surgery on the right great toe by Dr. Solomon Flanagan long time ago. Skin: No rashes, No breakdown Musculoskeletal: No Tenderness to Palpation of Joints or Extremities Neurological: Cranial nerves II-XII grossly intact, DTR 2+/4 and Symmetrical, Neuro grossly intact Psych/Mental Status: Normal Affect, Appropriate. Assessment & Plan Assessment/Plan (1) GI bleed: PLAN: Plan The patient is a 53 y/o M came to ED for dehydration, did not make urine for 2 days, not able to eat or drink because of nausea. He has additional symptoms of muscle cramps lightheadedness and dizziness, midsternal nonradiating mild to moderate chest pain for 1 week more severe for last 3 days. He had approximately unintentional 70 pound weight loss in 17-month. He states that this is his long-term issue but has gotten worse recently. #1. Unintentional weight loss 70 pounds in last 17 months probably probably due to decreased appetite/oral intake: Patient does not give any particular signs and symptoms suggesting cancer. He quit drinking alcohol 5 years ago. He had only 2 red to stool last to 3 months. Hemoglobin is stable. Patient was evaluated by agile java developer. No acute signs or symptoms of upper GI bleed. Patient might have probably erosive esophagitis from every morning vomiting. Recommended 40 mg Protonix twice a day for 8 weeks then transition to 20 mg every morning and outpatient EGD. Does not have any abdominal imaging in record. Liver chemistry bilirubin 1.2 otherwise normal transaminases. #2. Atypical chest pain most likely due to muscle cramping/musculoskeletal pain probably due to dehydration. Patient denies anginal quality chest pain. 2D echo done and does not show RWMA. EF 65%. Troponin elevated but does not show delta change. 149, 142 and 100. CK 1251 mild rhabdomyolysis. On IV fluid. Sodium 138 potassium normal. Twelve-lead EKG shows sinus rhythm without obvious evidence of ischemia. His chest pain, EKG and troponin and cardiac sonographer not suggestive of ACS. Chest x-ray no acute cardiopulmonary abnormality. Fasting profile within normal limit. #3. Acute rhabdomyolysis: Admission total creatinine kinase 1032, repeat CK 1151. Continue IV fluid #4. Acute kidney injury: Secondary to significant dehydration and poor oral intake. Admission BUN/Cr 27/2.65, prior baseline creatinine noted to be 0.9-1.1 on 04/11/2021. Will hydrate, hold nephrotoxic medications. Repeat BUNs/creat inine 17/12.53 continue IV fluid. #6. Hypertension: Continue home regimen including bisoprolol with further adjustments as needed, PRN hydralazine. #7. Anxiety and depression and benzodiazepine Xanax dependence: Patient is on a notably high dose every 6 hours of alprazolam was decreased to 1 mg, 3 times daily at 6 AM 12 noon and 6 PM as needed, discussed with pharmacist. #8. Tobacco Abuse: Encouraged cessation. #9. Chronic migraines: continue patient home topiramate regimen. #10. Former alcohol abuse: Sober times approximately 6 years, encourage continued sobriety. #11. DVT prophylaxis: SCDs. #12. CODE STATUS: Full code. Clinical Impression(s) from Imaging Studies Chest X-Ray 06/06/23 19:12 IMPRESSION: No radiographic evidence of acute cardiopulmonary disease. Electronically Signed: Jose Guadalupe Valladares MD at 19:38 EDT Reading Location ID and State: [facility] / [place] Tel , Service support , Echocardiogram 06/06/23 22:44 Interpretation Summary The estimated ejection fraction is 65 %. Trivial mitral valve insufficiency. Trivial tricuspid valve insufficiency. Ordering Physician: Britt Yanes Referring Physician: MD Osmel Presley Performed By: Lotus Umana, GAUTAM Charges/Coding Visit Charges Inpatient E&M: 60006 Subs Hosp L2
--- NOTE | 2023-06-07 09:35 | CASEMGMT ---
RN REJI Face to Face with patient for initial transition planning/care coordination assessment. RN CM introduced self and role at [facility]. Patient lying in bed, alert and oriented. Patient willing to participate in assessment and is able to answer all questions appropriately. Care providers, pharmacy, and demographics verified. Patient wishes to discharge home, denies need for home health at this time. Patient states he has no further needs or concerns at this time. CM to follow for discharge planning needs that may arise. PCP: Sakina Specialists: none Preferred Pharmacy: [facility] Insurance: [facility] Prescription Benefit: yes Living Will/HPOA: none LNOK: Living Arrangements: Patient lives with in a 2 story home with bed and bath on first floor, 3 steps to enter the home. Transportation: DME/HHC: Patient has cane, crutches, walker, and wheelchair at home. No previous HHC or SNF Disposition Plan: Patient to discharge home with family support and follow-up plans in place. Kelly YOUNG, RN, CM
[2023-06-07 09:59] VITALS: BP 138/76; PULSE 58; RESP 17; TEMP 36.6; O2SAT 99
[2023-06-07] MEDS: Bisoprolol Fumarate 5 MG Tablet 10 MG PO (10:10)
--- NOTE | 2023-06-07 15:40 | CON.PCM.GI_ITS ---
HPI Consult Data Date of Consult: 06/07/23 HPI Narrative Reason for Consultation: GI bleeding HPI Narrative: LISHA OCAMPO, is a 53-year-old male presenting with concern for dehydration. He states he has not made urine in 2 days. He has not been able to eat or drink because of nausea. He reports for the last day he has not had any water. He has not had anything to eat since yesterday when he had a grilled cheese. The day before he had a [employer] cheeseburger. Patient states that typically his day starts with an episode of nausea and vomiting he gets better. He states this is a long-term issue but it has gotten better over the last few days. He has been working outside in the heat and has decreased water intake. Patient feels like he is having muscle cramps all over his body. He was diagnosed with acute kidney injury and rhabdo myelitis is in the emergency room. His hemoglobin always runs high due to hemoconcentration from cigarette usage. His hemoglobin was 16 in the emergency room and currently it is 14. He has not seen any more bleeding and he did have only 1 episode of coffee-ground emesis as per the patient. He has been on a PPI drip and IV fluids for rhabdomyolysis. He had a upper endoscopy and colonoscopy in the past for history of gastroesophageal reflux disease. He did not have any Macdonald's esophagus. He was told he had a small sliding hiatal hernia but no signs of inflamed patient to suspect H. pylori was seen on his upper endoscopy. He does not take any NSAIDs on a daily basis. His colonoscopy did have a couple polyps and is scheduled to have repeat colonoscopy at a 5-year interval. [facility], LATER [facility] Medical History Anemia Anxiety and depression Arthritis History of alcohol abuse Hypertension Migraines Tobacco use Home Medications alprazolam 2 mg tablet 2 mg PO Q6H PRN Anxiety 04/10/21 [History Last Taken 04/10/21] bisoprolol fumarate 10 mg tablet 10 mg PO DAILY BP 04/10/21 [History Last Taken 04/10/21] Allergy/AdvReac Type Severity Reaction Status Date / Time duloxetine [From Cymbalta] Allergy Other Verified 06/06/23 17:32 quetiapine fumarate Allergy Other Verified 06/06/23 17:32 [From Seroquel] sumatriptan [From Imitrex] Allergy Other Verified 06/06/23 17:32 Family History (Updated 06/06/23 @ 21:[address] Britt Yanes MD) Father Lung cancer Mother CAD (coronary artery disease) Heart disease Hypertension Myocardial infarction Surgical History (Updated 06/06/23 @ 20:[address] Britt Yanes MD) H/O arthroscopic knee surgery H/O arthroscopy of shoulder Social History (Updated 06/06/23 @ 21:[address] Britt Yanes MD) household members: spouse Smoking Status: Former smoker how long ago did patient quit smoking: Former up to 2 ppd cigarette tobacco use-->now 1-2 cig/day. alcohol intake: former details: Sober x ~ 6 years. substance use type: former substance user Date of last use: Former cannabis use. ROS ROS Narrative Admission Review of Systems: CONSTITUTIONAL: No weight loss, fever, chills, + weakness or fatigue. HEENT: + LH, dizziness. Eyes: No visual loss, blurred vision, double vision or yellow sclerae. Ears, Nose, Throat: No hearing loss, sneezing, congestion, runny nose or sore throat. SKIN: No rash or itching, lesions, wounds. CARDIOVASCULAR: + LH, dizziness, chest pain, No palpitations, edema, orthopnea, syncopal events. RESPIRATORY: + Shortness of breath, occasional cough without marked sputum, occasional wheezing, No hemoptysis. GASTROINTESTINAL: + anorexia, nausea, vomiting, occasional loose stool, BRBPR. No abdominal pain, melena. GENITOURINARY: No dysuria, frequency, urgency or retention. NEUROLOGICAL: + LH, dizziness. No syncope, paralysis, ataxia, numbness or tingling in the extremities, focal weakness, change in bowel or bladder control, seizure. MUSCULOSKELETAL: + muscle, back pain, joint pain or stiffness. HEMATOLOGIC: + bleeding or bruising. LYMPHATICS: No enlarged nodes. No history of splenectomy. PSYCHIATRIC: No history of depression or anxiety. ENDOCRINOLOGIC: No reports of sweating, cold or heat intolerance. No polyuria or polydipsia. ALLERGIES: No history of asthma, hives, eczema or rhinitis. Lab / Micro Data 06/07/23 02:23 06/07/23 02:23 Labs: Laboratory Results - last 24 hr 06/06/23 18:41: WBC 16.0 H, RBC 5.66, Hgb 16.8 H, Hct 49.7, MCV 87.8, MCH 29.7, MCHC 33.8, RDW Std Deviation 42.7, RDW Coeff of Smith 13.3, Plt Count 387, MPV 10.7, Immature Gran % (Auto) 0.400, Neut % (Auto) 83.9 H, Lymph % (Auto) 9.5 L, [place] % (Auto) 5.7, Eos % (Auto) 0.0, Baso % (Auto) 0.5, Absolute Neuts (auto) 13.4 H, Absolute Lymphs (auto) 1.52, Nucleated RBC % 0, Sodium 133 L, Potassium 4.5, Chloride 99, Carbon Dioxide 18.0 L, Anion Gap 16 H, BUN 27 H, Creatinine 2.65 H, Estim Creat Clear Calc 24.85, Est GFR (MDRD) Af Amer 32 L, Est GFR (MDRD) Non-Af 27 L, BUN/Creatinine Ratio 10.2, Glucose 110 H, Calcium 11.8 H, Magnesium 2.7 H, Total Bilirubin 1.20 H, Direct Bilirubin 0.29, AST 34, ALT 26, Alkaline Phosphatase 90, Total Creatine Kinase 1032 H, Troponin I High Sens 149 H*, B-Natriuretic Peptide 25.8, Total Protein 9.5 H, Albumin 5.5 H, Globulin 4.0, Lipase 21 06/06/23 21:10: Magnesium 2.5, Troponin I High Sens 142 H* 06/06/23 21:18: PT 13.6, INR 1.0, APTT 28.9, Acetone Level SMALL H 06/06/23 22:00: Urine Color Yellow, Urine Clarity Clear, Urine pH 5.0, Ur Specific [place] 1.020, Urine Protein 30 H, Urine Glucose (UA) Normal, Urine Ketones 50 H, Urine Occult Blood 10 H, Urine Nitrite Negative, Urine Bilirubin 1 H, Urine Urobilinogen Normal, Ur Leukocyte Esterase 25 H, Urine RBC 0-5 SEEN, Urine WBC 0 SEEN, Ur Squamous Epith Cells 0 SEEN, Urine Bacteria RARE, Hyaline Casts 5-10 SEEN, Urine Mucus 0 SEEN 06/06/23 23:19: Hgb 15.2, Hct 45.3, Sodium 134 L, Potassium 4.5, Chloride 102, Carbon Dioxide 21.0, Anion Gap 11, BUN 27 H, Creatinine 1.85 H, Estim Creat Clear Calc 37.01, Est GFR (MDRD) Af Amer 49 L, Est GFR (MDRD) Non-Af 41 L, B UN/Creatinine Ratio 14.6, Glucose 125 H, Hemoglobin A1c 5.7 H, Calcium 9.8, Total Bilirubin 0.80, AST 32, ALT 23, Alkaline Phosphatase 74, Total Protein 8 .1, Albumin 4.5, Globulin 3.6, Albumin/Globulin Ratio 1.2 06/07/23 02:23: WBC 12.2 H, RBC 4.20 L, Hgb 13.1, Hct 38.5 L, MCV 91.7, MCH 31.2, MCHC 34.0, RDW Std Deviation 45.2 H, RDW Coeff of Smith 13.4, Plt Count 265, MPV 10.6, Immature Gran % (Auto) 0.300, Neut % (Auto) 78.1 H, Lymph % (Auto) 14.0 L, [place] % (Auto) 6.7, Eos % (Auto) 0.2, Baso % (Auto) 0.7, Absolute Neuts (auto) 9.5 H, Absolute Lymphs (auto) 1.70, Nucleated RBC % 0, Sodium 138, Potassium 4.1, Chloride 110 H, Carbon Dioxide 21.0, Anion Gap 7, BUN 24 H, Creatinine 1.53 H, Estim Creat Clear Calc 44.75, Est GFR (MDRD) Af Amer 61, Est GFR (MDRD) Non-Af 50 L, BUN/Creatinine Ratio 15.7, Glucose 121 H, Calcium 8.2 L, Total Bilirubin 0.60, AST 28, ALT 17, Alkaline Phosphatase 59, Total Creatine Kinase 1151 H, Troponin I High Sens 100 H, Total Protein 6.3 L, Albumin 3.6, Globulin 2.7, Albumin/Globulin Ratio 1.3, Triglycerides 48, Cholesterol 118, LDL Cholesterol 53, VLDL Cholesterol 10, HDL Cholesterol 55 Radiology Impression Chest X-Ray 06/06/23 19:12 IMPRESSION: No radiographic evidence of acute cardiopulmonary disease. Electronically Signed: Jose Guadalupe Valladares MD at 19:38 EDT , Echocardiogram 06/06/23 22:44 Interpretation Summary The estimated ejection fraction is 65 %. Trivial mitral valve insufficiency. Trivial tricuspid valve insufficiency. Ordering Physician: Britt Yanes Referring Physician: MD Osmel Presley Performed By: Lotus Umana RDCS Assessment & Plan Assessment/Plan (1) GI bleed: QUALIFIERS: GI bleed type/associated pathology: unspecified gastrointestinal hemorrhage type Qualified Code(s): K92.2 - Gastrointestinal hemorrhage, unspecified PLAN: There is no signs or symptoms of upper GI bleed at this time. Patient has frequent nausea vomiting every morning likely resulting in erosive esophagitis. He says he does this because he does not have his benzodiazepines overnight. Also suspect that he has a nicotine induced cough but also leads to erosive esophagitis. He has not shown any signs of active bleeding in his hemoglobin and hematocrit are within normal limits. I do not think he needs an emergent endoscopy at this time and can likely follow-up as an outpatient. Would recommend 40 mg of Protonix twice a day for 8 weeks and then transition down to hopefully 20 mg every morning and the procedure. Charges/Coding Visit Charges Inpatient E&M: 58150 Init Hosp L3
--- NOTE | 2023-06-07 16:01 | PCM.CONS.C ---
Assessment & Plan Assessment/Plan (1) Chest pain: (2) Acute renal failure due to rhabdomyolysis: (3) Non-STEMI (non-ST elevated myocardial infarction): (4) GI bleed: QUALIFIERS: GI bleed type/associated pathology: unspecified gastrointestinal hemorrhage type Qualified Code(s): K92.2 - Gastrointestinal hemorrhage, unspecified PLAN: Plan 53-year-old patient who has symptoms of muscle cramps, lightheadedness dizziness midsternal nonradiating mild to moderate chest pain also was noted drinking or eating for the last 2 days and had difficulty of urination as well Has a indeterminate cardiac enzymes elevation which Secondary to type II ME with demand myocardial ischemia Noted patient had significant elevated creatinine kinase With a clinical diagnosis of acute rhabdomyolysis creatinine kinase 1032. And elevation of high sensitive troponin I is mild Patient has other medical problems Hypertension, anxiety and depression History of tobacco abuse History of former alcohol abuse and chronic migraine Had acute renal failure with elevated creatinine of 2.65. Cardiac care plan recommendation I reviewed all the current evaluation and this patient including the imaging studies His echocardiogram showed LV function preserved No significant valve abnormality From cardiac standpoint recommend to continue current conservative treatment No further cardiac evaluation would be required patient can follow-up as an outpatient with the primary loss mitigation specialist/[facility] and evaluate for ischemic myocardium by Lexiscan sestamibi scan be set up as an outpatient. HPI Consult Data Date of Consult: 06/07/23 HPI Narrative Reason for Consultation: Consultation requested to evaluate this patient who had acute rhabdomyolysi HPI Narrative: LISHA OCAMPO, is a 53 M who presents [facility] Medical History Anemia Anxiety and depression Arthritis History of alcohol abuse Hypertension Migraines Tobacco use Home Medications alprazolam 2 mg tablet 2 mg PO Q6H PRN Anxiety 04/10/21 [History Last Taken 04/10/21] bisoprolol fumarate 10 mg tablet 10 mg PO DAILY BP 04/10/21 [History Last Taken 04/10/21] Allergy/AdvReac Type Severity Reaction Status Date / Time duloxetine [From Cymbalta] Allergy Other Verified 06/06/23 17:32 quetiapine fumarate Allergy Other Verified 06/06/23 17:32 [From Seroquel] sumatriptan [From Imitrex] Allergy Other Verified 06/06/23 17:32 Family History (Updated 06/06/23 @ 21:[address] Britt Yanes MD) Father Lung cancer Mother CAD (coronary artery disease) Heart disease Hypertension Myocardial infarction Surgical History (Updated 06/06/23 @ 20:[address] Britt Yanes MD) H/O arthroscopic knee surgery H/O arthroscopy of shoulder Social History (Updated 06/06/23 @ 21:[address] Britt Yanes MD) household members: spouse Smoking Status: Former smoker how long ago did patient quit smoking: Former up to 2 ppd cigarette tobacco use-->now 1-2 cig/day. alcohol intake: former details: Sober x ~ 6 years. substance use type: former substance user Date of last use: Former cannabis use. ROS ROS Narrative 14 point review of system is unremarkable [place] presented with dehydration not able to eat, drink because of symptoms of nausea and also has muscle cramps lightheadedness. Dizziness midsternal nonradiating mild to moderate retrosternal chest pain nearly ongoing for 1 week. Physical Exam Cardio Cardio Narrative: Cardiac rhythm is normal sinus rhythm Cardiac exam S1-S2 regular Chest exam is clear to auscultation bilateral Risk Stratification Risk Stratification Applicable: No Objective Data Vital Signs: Vital Signs Temp Pulse Resp BP Pulse Ox O2 Del Method 97.8 F 58 L 17 138/76 H 99 Room Air 06/07/23 09:59 06/07/23 09:59 06/07/23 09:59 06/07/23 09:59 06/07/23 09:59 06/07/23 10:00 Oxygen Delivery Method Room Air Weight: 127 lb 13.89 oz Body Mass Index (BMI) 20.0 Intake & Output: Intake and Output for Last 24 Hours 06/05/23 06/06/23 06/07/23 23:59 23:59 23:59 Intake Total 1290 / 1290 4578.67 / 4578.67 Output Total 900 / 900 Balance 1290 / 1290 3678.67 / 3678.67 Lab / Micro Data 06/07/23 02:23 06/07/23 02:23 Labs: Laboratory Results - last 24 hr 06/06/23 18:41: WBC 16.0 H, RBC 5.66, Hgb 16.8 H, Hct 49.7, MCV 87.8, MCH 29.7, MCHC 33.8, RDW Std Deviation 42.7, RDW Coeff of Smith 13.3, Plt Count 387, MPV 10.7, Immature Gran % (Auto) 0.400, Neut % (Auto) 83.9 H, Lymph % (Auto) 9.5 L, [place] % (Auto) 5.7, Eos % (Auto) 0.0, Baso % (Auto) 0.5, Absolute Neuts (auto) 13.4 H, Absolute Lymphs (auto) 1.52, Nucleated RBC % 0, Sodium 133 L, Potassium 4.5, Chloride 99, Carbon Dioxide 18.0 L, Anion Gap 16 H, BUN 27 H, Creatinine 2.65 H, Estim Creat Clear Calc 24.85, Est GFR (MDRD) Af Amer 32 L, Est GFR (MDRD) Non-Af 27 L, BUN/Creatinine Ratio 10.2, Glucose 110 H, Calcium 11.8 H, Magnesium 2.7 H, Total Bilirubin 1.20 H, Direct Bilirubin 0.29, AST 34, ALT 26, Alkaline Phosphatase 90, Total Creatine Kinase 1032 H, Troponin I High Sens 149 H*, B-Natriuretic Peptide 25.8, Total Protein 9.5 H, Albumin 5.5 H, Globulin 4.0, Lipase 21 06/06/23 21:10: Magnesium 2.5, Troponin I High Sens 142 H* 06/06/23 21:18: PT 13.6, INR 1.0, APTT 28.9, Acetone Level SMALL H 06/06/23 22:00: Urine Color Yellow, Urine Clarity Clear, Urine pH 5.0, Ur Specific [place] 1.020, Urine Protein 30 H, Urine Glucose (UA) Normal, Urine Ketones 50 H, Urine Occult Blood 10 H, Urine Nitrite Negative, Urine Bilirubin 1 H, Urine Urobilinogen Normal, Ur Leukocyte Esterase 25 H, Urine RBC 0-5 SEEN, Urine WBC 0 SEEN, Ur Squamous Epith Cells 0 SEEN, Urine Bacteria RARE, Hyaline Casts 5-10 SEEN, Urine Mucus 0 SEEN 06/06/23 23:19: Hgb 15.2, Hct 45.3, Sodium 134 L, Potassium 4.5, Chloride 102, Carbon Dioxide 21.0, Anion Gap 11, BUN 27 H, Creatinine 1.85 H, Estim Creat Clear Calc 37.01, Est GFR (MDRD) Af Amer 49 L, Est GFR (MDRD) Non-Af 41 L, BUN/Creatinine Ratio 14.6, Glucose 125 H, Hemoglobin A1c 5.7 H, Calcium 9.8, Total Bilirubin 0.80, AST 32, ALT 23, Alkaline Phosphatase 74, Total Protein 8.1, Albumin 4.5, Globulin 3.6, Albumin/Globulin Ratio 1.2 06/07/23 02:23: WBC 12.2 H, RBC 4.20 L, Hgb 13.1, Hct 38.5 L, MCV 91.7, MCH 31.2, MCHC 34.0, RDW Std Deviation 45.2 H, RDW Coeff of Smith 13.4, Plt Count 265, MPV 10.6, Immature Gran % (Auto) 0.300, Neut % (Auto) 78.1 H, Lymph % (Auto) 14.0 L, [place] % (Auto) 6.7, Eos % (Auto) 0.2, Baso % (Auto) 0.7, Absolute Neuts (auto) 9.5 H, Absolute Lymphs (auto) 1.70, Nucleated RBC % 0, Sodium 138, Potassium 4.1, Chloride 110 H, Carbon Dioxide 21.0, Anion Gap 7, BUN 24 H, Creatinine 1.53 H, Estim Creat Clear Calc 44.75, Est GFR (MDRD) Af Amer 61, Est GFR (MDRD) Non-Af 50 L, BUN/Creatinine Ratio 15.7, Glucose 121 H, Calcium 8.2 L, Total Bilirubin 0.60, AST 28, ALT 17, Alkaline Phosphatase 59, Total Creatine Kinase 1151 H, Troponin I High Sens 100 H, Total Protein 6.3 L, Albumin 3.6, Globulin 2.7, Albumin/Globulin Ratio 1.3, Triglycerides 48, Cholesterol 118, LDL Cholesterol 53, VLDL Cholesterol 10, HDL Cholesterol 55 Cardiology Labs/Tests 06/06/23 18:41: WBC 16.0 H, RBC 5.66, Hgb 16.8 H, Hct 49.7, MCV 87.8, MCH 29.7, MCHC 33.8, Plt Count 387, MPV 10.7, Immature Gran % (Auto) 0.400, Neut % (Auto) 83.9 H, Lymph % (Auto) 9.5 L, [place] % (Auto) 5.7, Eos % (Auto) 0.0, Baso % (Auto) 0.5, Absolute Neuts (auto) 13.4 H, Nucleated RBC % 0, Sodium 133 L, Potassium 4.5, Chloride 99, Carbon Dioxide 18.0 L, Anion Gap 16 H, BUN 27 H, Creatinine 2.65 H, Est GFR (MDRD) Af Amer 32 L, Est GFR (MDRD) Non-Af 27 L, BUN/Creatinine Ratio 10.2, Glucose 110 H, Calcium 11.8 H, Magnesium 2.7 H, Total Bilirubin 1.20 H, Direct Bilirubin 0.29, B-Natriuretic Peptide 25.8 06/06/23 21:10: Magnesium 2.5 06/06/23 21:18: PT 13.6, INR 1.0, APTT 28.9 06/06/23 22:00: Urine Color Yellow, Urine Clarity Clear, Urine pH 5.0, Ur Specific [place] 1.020, Urine Protein 30 H, Urine Glucose (UA) Normal, Urine Ketones 50 H, Urine Occult Blood 10 H, Urine Nitrite Negative, Urine Bilirubin 1 H, Urine Urobilinogen Normal, Ur Leukocyte Esterase 25 H, Urine RBC 0-5 SEEN, Urine WBC 0 SEEN 06/06/23 23:19: Hgb 15.2, Hct 45.3, Sodium 134 L, Potassium 4.5, Chloride 102, Carbon Dioxide 21.0, Anion Gap 11, BUN 27 H, Creatinine 1.85 H, Est GFR (MDRD) Af Amer 49 L, Est GFR (MDRD) Non-Af 41 L, BUN/Creatinine Ratio 14.6, Glucose 125 H, Hemoglobin A1c 5.7 H, Calcium 9.8, Total Bilirubin 0.80 06/07/23 02:23: WBC 12.2 H, RBC 4.20 L, Hgb 13.1, Hct 38.5 L, MCV 91.7, MCH 31.2, MCHC 34.0, Plt Count 265, MPV 10.6, Immature Gran % (Auto) 0.300, Neut % (Auto) 78.1 H, Lymph % (Auto) 14.0 L, [place] % (Auto) 6.7, Eos % (Auto) 0.2, Baso % (Auto) 0.7, Absolute Neuts (auto) 9.5 H, Nucleated RBC % 0, Sodium 138, Potassium 4.1, Chloride 110 H, Carbon Dioxide 21.0, Anion Gap 7, BUN 24 H, Creatinine 1.53 H, Est GFR (MDRD) Af Amer 61, Est GFR (MDRD) Non-Af 50 L, BUN/Creatinine Ratio 15.7, Glucose 121 H, Calcium 8.2 L, Total Bilirubin 0.60, Triglycerides 48, Cholesterol 118, LDL Cholesterol 53, VLDL Cholesterol 10, HDL Cholesterol 55 Rhythm: EKG: ECHO: Stress Test: Cardiac Cath: PCI: CT Surgery: Holter monitor: EPS: PPM: CXR: Chest CT Scan: Radiography Diagnostic Testing: Radiology Impression Chest X-Ray 06/06/23 19:12 IMPRESSION: No radiographic evidence of acute cardiopulmonary disease. Electronically Signed: Jose Guadalupe Valladares MD at 19:38 EDT , Echocardiogram 06/06/23 22:44 Interpretation Summary The estimated ejection fraction is 65 %. Trivial mitral valve insufficiency. Trivial tricuspid valve insufficiency. Ordering Physician: Britt Yanes Referring Physician: MD Osmel Presley Performed By: Lotus Umana, GAUTAM
[2023-06-07 16:43] VITALS: BP 130/83; PULSE 49; RESP 16; TEMP 36.6; O2SAT 100
[2023-06-07] MEDS: ALPRAZolam 0.5 MG Tablet 1 MG PO (17:52)
[2023-06-07] MEDS: Ceftriaxone 1 GM/50 ML BAG IV (22:28)
[2023-06-07 22:34] VITALS: BP 98/57; PULSE 61; RESP 16; TEMP 36.8; O2SAT 97
--- NOTE | 2023-06-07 23:05 | PCM.HOSP.N ---
Hospitalist Note Reviewed BZD regimen from home with pharmacy. OARRS review patient has been getting 2 mg po q 6 hours as needed and in decent amount. Ideally given his EtOH and substance abuse history this regimen will need to have a wean timeline. He is not willing to do this at this time and very strongly requested his regimen be again returned to what he has been chronically taking. Patient had of note increased agitation over the day since his regimen alteration. Upon discharge would benefit greatly from consideration wean or alternate regimen for his anxiety.
[2023-06-08 03:39] VITALS: BP 102/63; PULSE 43; RESP 16; TEMP 36.7; O2SAT 96
[2023-06-08] MEDS: 0.9% Normal Saline 1,000 ML 150 ML IV (04:59)
[2023-06-08] MEDS: ALPRAZolam 0.5 MG Tablet 2 MG PO (06:46)
--- NOTE | 2023-06-08 07:23 | DCINST_ITS ---
Discharge Instructions Diet Discharge Diet: No restrictions Activity Discharge Activity: Return to Normal Activity Weight Bearing Status: Weight bearing as tolerated Dressing / Incision Call your doctor if you observe: Fever of 101 or Higher, Coldness, Increased Pain, Numbness or Tingling, Change in Color, Inability to urinate, Inability to have a bowel movement, Shortness of breath, Dizziness, Fainting spells, Swelling in the ankles, Chest pain, Prolonged hiccupping, Increased palpitations (irregular heartbeat) and Calf discomfort Follow Up Care When: IN 2 WEEKS Test Results: Test results from this visit will be discussed in further detail at your follow- up appointment, if applicable. Discharge Plan Admission Admit Date/Time: 06/06/23 21:00 Primary Reason for Your Visit: Dehydration, JOHN/rhabdomyolysis Attending Provider: Tyron King Primary Care Provider: Osmel Presley Consulting Providers: Juan Block; Britt Yanes Discharge Orders/Prescriptions Prescriptions: New pantoprazole [Protonix] 40 mg tablet,delayed release (DR/EC) 40 mg PO BID Qty: 60 1RF Rx Instructions: advised TWICE DAILY FOR 8 WEEKS THEN 20 mg ONCE DAILY. Continued alprazolam 2 mg tablet 2 mg PO Q6H PRN (Reason: Anxiety) Patient Comments: TAKE 1 TABLET BY MOUTH EVERY 6 (SIX) hours NEEDED FOR ANXIETY Changed bisoprolol fumarate 10 mg tablet 5 mg PO DAILY 30 Days Qty: 0 0RF Patient Comments: take 1 tablet by mouth once daily Rx Instructions: Hold for heart less than 50 or systolic blood pressure less than 120 mmHg. Referrals / Follow Up: Osmel Presley DO [Primary Care Provider] - Within 2 Weeks (Follow with PCP if patient gets chest pain/discomfort will recommend outpatient treadmill nuclear stress test) Wojciech Florian DO [Med Staff - Active Staff] - Within 1 Month (for reflux esophagitis/GERD) Ray Vigil DO [Med Staff - Business Administration Instructor] - Within 1 Month (For history of anxiety disorder) Disposition Disposition (needs filled in before D/C Order can be placed): Home, Self Care
[2023-06-08 07:41] VITALS: O2SAT 97
[2023-06-08 09:22] VITALS: BP 133/78; PULSE 53; RESP 17; TEMP 36.7; O2SAT 99
--- NOTE | 2023-06-08 09:32 | PCM.DC.SUM ---
Providers Date of Admission: 06/06/23 Date of Discharge: 06/08/23 Primary Care Physician: Dr. Osmel Presley, Consultations 06/06/23 22:44 Consult: Gastroenterology Routine Consulting Provider: [facility] Reason for Consult: GI bleed, 70 lb weight loss, intractable N/V EMERGENT Consult: No Notified: Yes Date Notified: 06/06/23 Time Notified: 21:43 Method of Notification: Text 06/07/23 04:17 Consult: Cardiology Routine Consulting Provider: Juan Block Reason for Consult: Chest pain, Possible NSTEMI, possible demand EMERGENT Consult: No MD Notified: Yes Date Notified: 06/07/23 Time Notified: 04:17 Method of Notification: Text Reason For Visit: ?NSTEMI/CP, JOHN, RHABDO Diagnosis Discharge Diagnosis (1) GI bleed: Status: Acute Code(s): K92.2 - Gastrointestinal hemorrhage, unspecified Qualifiers: GI bleed type/associated pathology: unspecified gastrointestinal hemorrhage type Qualified Code(s): K92.2 - Gastrointestinal hemorrhage, unspecified (2) Chest pain: Status: Acute Code(s): R07.9 - Chest pain, unspecified (3) Acute renal failure due to rhabdomyolysis: Status: Acute Code(s): N17.9 - Acute kidney failure, unspecified; M62.82 - Rhabdomyolysis (4) Non-STEMI (non-ST elevated myocardial infarction): Status: Acute Code(s): I21.4 - Non-ST elevation (NSTEMI) myocardial infarction Plan The patient is a 53 y/o M came to ED for dehydration, did not make urine for 2 days, not able to eat or drink because of nausea. He has additional symptoms of muscle cramps lightheadedness and dizziness, midsternal nonradiating mild to moderate chest pain for 1 week more severe for last 3 days. He had approximately unintentional 70 pound weight loss in 17-month. He states that this is his long-term issue but has gotten worse recently. #1. Unintentional weight loss 70 pounds in last 17 months probably probably due to decreased appetite/oral intake: Patient does not give any particular signs and symptoms suggesting cancer. He quit drinking alcohol 5 years ago. He had only 2 red to stool last to 3 months. Hemoglobin is stable. Patient was evaluated by cardiovascular invasive specialist. No acute signs or symptoms of upper GI bleed. Patient might have probably erosive esophagitis from every morning vomiting. Recommended 40 mg Protonix twice a day for 8 weeks then transition to 20 mg every morning and outpatient EGD. Does not have any abdominal imaging in record. Liver chemistry bilirubin 1.2 otherwise normal transaminases. 06/08: Patient is being discharged on pantoprazole 40 mg twice daily for 8 weeks / 2 months and then 20 mg daily. In the meantime follow-up with Dr. Florian, cardiovascular invasive specialist in 1 month. #2. Atypical chest pain most likely due to muscle cramping/musculoskeletal pain probably due to dehydration. Patient denies anginal quality chest pain. 2D echo done and does not show RWMA. EF 65%. Troponin elevated but does not show delta change. 149, 142 and 100. CK 1251 mild rhabdomyolysis. On IV fluid. Sodium 138 potassium normal. Twelve-lead EKG shows sinus rhythm without obvious evidence of ischemia. His chest pain, EKG and troponin and playground monitor not suggestive of ACS. Chest x-ray no acute cardiopulmonary abnormality. Fasting profile within normal limit. 06/08 Patient does not have ACS. Patient was evaluated by paper supervisor 2D echo showed EF 65% with no regional wall motion abnormality. No significant valve abnormality. Advised follow-up with PCP #3. Acute rhabdomyolysis: Admission total creatinine kinase 1032, repeat CK 1151. Continue IV fluid 06/08 patient muscle cramps had resolved yesterday #4. Acute kidney injury: Secondary to significant dehydration and poor oral intake. Admission BUN/Cr 27/2.65, prior baseline creatinine noted to be 0.9-1.1 on 04/11/2021. hydrate, hold nephrotoxic medications. Repeat BUNs/creatinine 24/1.53 continue IV fluid. IV fluid normal saline at 50 mill per hour. 06/08: BMP repeated today shows creatinine 1.07. BUN normal. Electrolytes in normal range except chloride 117 probably from normal saline. Patient is discharged home. JOHN resolved. #6. Hypertension: Continue home regimen including bisoprolol with further adjustments as needed, PRN hydralazine. #7. Anxiety and depression and benzodiazepine Xanax dependence: Patient is on a notably high dose every 6 hours of alprazolam was decreased to 1 mg, 3 times daily at 6 AM 12 noon and 6 PM as needed, discussed with pharmacist. 06/08: Patient was upset decreasing the alprazolam and put back on 2 mg every 6 hourly as needed as mentioned above. But usually does not take midnight dose because he is sleeping. He had agreed to see psychiatrist and outpatient referral made. #8. Tobacco Abuse: Encouraged cessation. #9. Chronic migraines: continue patient home topiramate regimen. #10. Former alcohol abuse: Sober times approximately 6 years, encourage continued sobriety. #11. DVT prophylaxis: SCDs. #12. CODE STATUS: Full code. Discharge medication reconciliation done. Discharge follow-up instructions completed. Discharge process discussed with the patient and all questions were answered to patient's satisfaction. Discharged home Total time spent, exact 35 minutes on discharge meds reconciliation, examination, coordination of care with nurses and ancillary staff, review of imaging and blood test and discussion with the patient on follow-up instructions. Laboratory Results 06/08/23 09:55: Sodium 143, Potassium 4.4, Chloride 117 H, Carbon Dioxide 23.0, Anion Gap 3 L, BUN 14, Creatinine 1.05, Estim Creat Clear Calc 65.21, Est GFR (MDRD) Af Amer 94, Est GFR (MDRD) Non-Af 78, BUN/Creatinine Ratio 13.3, Glucose 101, Calcium 8.1 L Clinical Impression(s) from Imaging Studies Chest X-Ray 06/06/23 19:12 IMPRESSION: No radiographic evidence of acute cardiopulmonary disease. Electronically Signed: Jose Guadalupe Valladares MD at 19:38 EDT , Echocardiogram 06/06/23 22:44 Interpretation Summary The estimated ejection fraction is 65 %. Trivial mitral valve insufficiency. Trivial tricuspid valve insufficiency. Ordering Physician: Britt Yanes Referring Physician: MD Sakina Osmel Performed By: Lotus Umana, GAUTAM Medications at Discharge Home Medications alprazolam 2 mg tablet 2 mg PO Q6H PRN Anxiety 04/10/21 bisoprolol fumarate 10 mg tablet 5 mg (1/2 x 10 mg) PO DAILY BP 30 days #0 tabs 06/08/23 pantoprazole 40 mg tablet,delayed release (Protonix) 40 mg PO BID #60 tabs 06/08/23 Physical Exam Narrative Seen and examined. Patient is doing good. No acute symptoms. No chest pain or shortness of breath. His muscle cramps have resolved. Physical exam General: Alert, Oriented x3, Cooperative patient not in distress thin looking gentleman. HEENT: Atraumatic, PERRLA, EOMI, Normocephalic Oral: Oral mucosa moist. No Gingival or Mucosal Lesions/ Ulcerations Neck: Supple, No JVD, Negative Carotid Bruits Lungs: Air entry diminished in bilateral lung bases. No crepitation/rhonchi Cardiovascular: Heart rate 58/min, usually 72/min., Normal S1, Normal S2, No murmurs Abdomen: Bowel Sounds Present, Soft, Non Tender, Non-Distended : No renal angle tenderness. No suprapubic tenderness. Extremities: No edema, Capillary Refill Less than 3 Seconds. Had foot surgery on the right great toe by Dr. Dunn long time ago. Skin: No rashes, No breakdown Musculoskeletal: No Tenderness to Palpation of Joints or Extremities Neurological: Cranial nerves II-XII grossly intact, DTR 2+/4 and Symmetrical, Neuro grossly intact Psych/Mental Status: Normal Affect, Appropriate. Weight / BMI Weight Weight: 127 lb 13.89 oz Body Mass Index (BMI) 20.0 ABG / Lab / Microbiology Data 06/07/23 02:23 06/08/23 09:55 Radiography Diagnostic Testing: Radiology Impression Echocardiogram 06/06/23 22:44 Interpretation Summary The estimated ejection fraction is 65 %. Trivial mitral valve insufficiency. Trivial tricuspid valve insufficiency. Ordering Physician: Britt Yanes Referring Physician: MD Osmel Presley Performed By: Lotus Umana RDCS D/C Instructions Discharge Diet: No restrictions Weight Bearing Status: Weight bearing as tolerated Call your doctor if you observe: Fever of 101 or Higher, Coldness, Increased Pain, Numbness or Tingling, Change in Color, Inability to urinate, Inability to have a bowel movement, Shortness of breath, Dizziness, Fainting spells, Swelling in the ankles, Chest pain, Prolonged hiccupping, Increased palpitations (irregular heartbeat) and Calf discomfort When: IN 2 WEEKS Meaningful Use Info Meaningful Use Diagnoses (Choose all that apply): None applicable Discharge Plan Admission Admit Date/Time: 06/06/23 21:00 Primary Reason for Your Visit: Dehydration, JOHN/rhabdomyolysis Attending Provider: Tyron King Primary Care Provider: Osmel Presley Consulting Providers: Juan Block; Britt Yanes Discharge Orders/Prescriptions Prescriptions: New pantoprazole [Protonix] 40 mg tablet,delayed release (DR/EC) 40 mg PO BID Qty: 60 1RF Rx Instructions: advised TWICE DAILY FOR 8 WEEKS THEN 20 mg ONCE DAILY. Continued alprazolam 2 mg tablet 2 mg PO Q6H PRN (Reason: Anxiety) Patient Comments: TAKE 1 TABLET BY MOUTH EVERY 6 (SIX) hours NEEDED FOR ANXIETY Changed bisoprolol fumarate 10 mg tablet 5 mg PO DAILY 30 Days Qty: 0 0RF Patient Comments: take 1 tablet by mouth once daily Rx Instructions: Hold for heart less than 50 or systolic blood pressure less than 120 mmHg. Referrals / Follow Up: Wojciech Florian DO [Med Staff - Active Staff] - Within 1 Month (for reflux esophagitis/GERD) Osmel Presley DO [Primary Care Provider] - Within 2 Weeks (Follow with PCP if patient gets chest pain/discomfort will recommend outpatient treadmill nuclear stress test) Ray Vigil DO [Med Staff - Cell Phone Repair Technician] - Within 1 Month (For history of anxiety disorder) Disposition Disposition (needs filled in before D/C Order can be placed): Home, Self Care Charges/Coding Visit Charges Inpatient E&M: 23514 Disch Hosp >30min
[2023-06-08 10:18] LABS: Anion Gap 3 (5-15); BUN 14 mg/dL (7-18); BUN/Creat Ratio 13.3 RATIO (10-20); Calcium,Total 8.1 mg/dL (8.5-10.1); Chloride 117 mmol/L (98-107); Creatinine, Serum 1.05 mg/dL (0.70-1.30); EST Glomerular Filtration Rate 78 mL/min (>60); Est Glom Filt Rate - Afr Amer 94 mL/min (>60); Estimated Creatinine Clearance 65.21 ml/min; Glucose 101 mg/dL (74-106); Potassium 4.4 mmol/L (3.5-5.1); Sodium Level 143 mmol/L (136-145)
== END 2023-06-08 11:26 | disposition home or self-care (01) | DRG 422 ==
LOC: ED 20:33 → PCU 21:45
PROVIDERS: Admitting Provider Family Medicine; Emergency Provider Student in an Organized Health Care Education/Training Program; PCP Preventive Medicine Occupational Medicine; Visit Provider Internal Medicine
DX: E86.0 Dehydration (principal); K92.2 Gastrointestinal hemorrhage, unspecified; N17.9 Acute kidney failure, unspecified; K74.60 Unspecified cirrhosis of liver; M62.82 Rhabdomyolysis; I10 Essential (primary) hypertension; F32.A Depression, unspecified; F10.10 Alcohol abuse, uncomplicated; F41.9 Anxiety disorder, unspecified; K21.00 Gastro-esophageal reflux disease with esophagitis, without bleeding; G43.709 Chronic migraine without aura, not intractable, without status migrainosus; F12.90 Cannabis use, unspecified, uncomplicated; R63.4 Abnormal weight loss; Z87.891 Personal history of nicotine dependence; R07.9 Chest pain, unspecified
CPT/HCPCS: 36415; 71045; 80048; 80053; 80061; 80076; 81001; 82009; 82550; 83036; 83690; 83735; 83880; 84484; 85014; 85018; 85025; 85610; 85730; 93005; 93306; 94668; 99285; J7030; A4216; J2405; J3490